=== PATIENT | male | born 1940 | race Caucasian/White ===

== ENCOUNTER 2018-09-29 17:01 | Inpatient (IN) | payer MEDICARE, BC ==
[~2018-09-29] VITALS: Ht 157.5 cm; Wt 67.8 kg
--- NOTE | ~2018-09-29 | CON ---
[address] [address] CONSULTATION Name: ABDULAZIZ ENCISO Room: [address] IN M.R.#: [id number] Admission: 09/29/18 Attend Phys: Poncho Connelly MD Discharge: Date of : 44 Report #: [id number] THIS REPORT FOR: //name// CC: Fredi Connelly DICTATED BY: Flores Ferreira [facility] DATE OF SERVICE: 10/03/2018 Please note at the time of this dictation, the patient was seen and physically examined by myself. REASON FOR CONSULTATION: Ascites, fluid refractory. HISTORY OF PRESENT ILLNESS: This 77-year-old male who presented to the rehab unit for history of sepsis, respiratory failure and pneumonia. He was newly diagnosed with cirrhosis from [facility]. He was admitted to the acute rehabilitation because of weakness and needing further rehabilitation. The patient states that he did have a paracentesis done at [facility] by Dr. Moss who is his GI doctor over there, in which he had an EGD and colonoscopy, he said EGD had some varices. Otherwise, all was good. He does not recall how much fluid was removed on the paracentesis prior to his discharge. The patient recently had a paracentesis done here due to abdominal distention. He had 2900 mL removed, and we are asked to see him for readjustment of his diuretics. ALLERGIES: SULFA, AMOXICILLIN, METFORMIN, LOSARTAN. MEDICATIONS: Lasix, doxycycline, Nexium, folic acid, ascorbic acid, multivitamin, Januvia, Ativan, felodipine, prednisone, Lipitor. PAST MEDICAL HISTORY: Compression fractures, GERD, liver cirrhosis, pneumonia, recent sepsis. PAST SURGICAL HISTORY: CABG, cholecystectomy, cardiac stent. Does have a history of atrial fibrillation. FAMILY HISTORY: Noncontributory. SOCIAL HISTORY: Former use of tobacco, never any alcohol use and denies any alcohol use. REVIEW OF SYSTEMS: Twelve-point review of systems is essentially negative except what is mentioned in the HPI. PHYSICAL EXAMINATION: [place] [address] CONSULTATION Name: ABDULAZIZ ENCISO Room: [address] IN [facility]#: [id number] Admission: 09/29/18 Attend Phys: Poncho Connelly MD Discharge: Date of : 42 Report #: [id number] VITAL SIGNS: Temperature 37.1, pulse 76, respirations 24, blood pressure 120/60. HEART: Regular rate and rhythm. CHEST: Lungs are diminished, but clear. ABDOMEN: Soft, positive bowel sounds in all 4 quadrants. Umbilical hernia noted. LABORATORY DATA: Hemoglobin 10.4, platelets 128, white count is 9.5. GFR is 94. Total bilirubin 0.4, alkaline phosphatase 189, ALT is 46, AST is 56. The patient's serum albumin ascites gradient is greater than 1.1. IMPRESSION: 1. Ascites, refractory. 2. Newly diagnosed cirrhosis. 3. Thrombocytopenia. 4. History of esophageal varices. PLAN: 1. Adjustment of diuretics Spironolactone 100 mg daily and Lasix 40 mg daily. 2. Weight daily. 3. The patient will follow up with his GI doctor, Dr. Moss, at [facility]. Thank you for allowing us to participate in this patient's care. Please do not hesitate to call with any questions in regard to this consult. ADDENDUM I have personally seen and examined the patient and reviewed labs and imaging. The patient with evidence of cirrhosis and ascites secondary to the same. The patient also has hypoalbuminemia with albumin of 1.5. The ascitic fluid albumin was 0.3. The gradient of 1.2 suggests that this is secondary to portal hypertension. The patient currently on diuretic including Lasix of 40 mg b.i.d. and Aldactone of 50. We will increase this to 100 and in couple of days to 200 of Aldactone as the patient's creatinine and GFR allows us. The patient also will need transjugular liver biopsy as he has never had a clear diagnosis to what caused his cirrhosis. This also will determine his gradient. Finally, we want the dietitian consult to help with his diet as his albumin is 1.5. This will worsen his prognosis in reference to his ascites. Note that, the patient has had upper and lower endoscopy just a week ago by his ground hand. The patient is not aware of any significant workup in reference to his liver disease prior to this admission. By: [id number] Mosquera MD /nt
[~2018-09-29 17:01] MED LIST: ACCUPRIL; ACCUPRIL PO; ADULT LOW DOSE81 MG PO; AMBEREN PO; AMBIEN 5 MG TABL5 M1 PO; AMBIEN CR 6.26.25 M1 PO; AMBIEN CR12.5 MG PO; AMBIENCR; AMBIENCR PO; AMOXICILLIN125 MG; ASPIR 8181 MG PO; ASPIRIN EC325 MG PO; ASPIRIN EC81 M1 PO; ATIVAN0.5 MG PO; ATIVAN1 MG PO; ATORVASTATIN CA20 MG PO; ATORVASTATIN CA40 MG PO; CALCIUM 500 +1 EAC5 PO; CALCIUM 600 +1 EAC2 PO; CALCIUM 600 +1 EAC5 PO; CALCIUM PO; CEFTIN 250250 MG/52 PO; CENTRUM SILVER1 EAC2 PO; CENTRUM SILVER1 EAC4 PO; CEPACOL SORE T1 EAC1 MM; DOXYCYCLINE 10100 MG PO; ECOTRIN325 MG PO; EFFIENT10 MG PO; ELIQUIS5 MG PO; ERGOCALCIF50000 UNIT PO; FENOFIBRATE134 MG PO; FISH OIL + VIT1 EACH PO; FOLIC ACID 40400 MC1 PO; FOLIC ACID 40400 MCG PO; FOLIC ACID PO; FOLIC ACID1 MG PO; GLIPIZIDE ER2.5 MG PO; GLIPIZIDE ER5 MG PO; GLUCOTROL XL5 MG PO; GLUCOTROL5 MG PO; IBUPROFEN 600600 M1 PO; JANUVIA100 MG PO; JUNIVA; LASIX 20 MG TAB20 MG PO; LASIX 40 MG TAB40 M2 PO; LISINOPRIL2.5 MG PO; LOSARTAN POTAS100 MG PO; MEROPENEM1 GM IV; METFORMIN; METHOTREXATE 22.5 MG PO; MULTI-VITAMIN1 EAC5 PO; MULTIVITAMINS; NEXIUM 40 MG CA40 M1 PO; NEXIUM40 MG PO; NITROGLYCERIN0.4 MG SUBLING; NORCO 5-325 TA1 EACH PO; PEPCID40 MG PO; PIOGLITAZONE15 MG; POTASSIUM20 PO; PREDNISONE; PREDNISONE 1 MG1 M1 PO; PREDNISONE 5 MG5 M1 PO; PREDNISONE PO; PREVACID 24HR15 MG PO; QUINU10 PD PO; QUINU5 PD PO; SENNA8.6 MG PO; TOPROL XL25 MG PO; TREXALL10 MG PO; TREXALL5 MG PO; TRICOR; TRICOR PO; TRICOR145 MG PO; TYLENOL EXTRA500 MG PO; UNICOMPLEX M TA1 TA1 PO; VITAMIN C + RO500 MG PO; VITAMIN D1000 UNI1 PO; VITAMINC500 PO; VYTORIN; VYTORIN 10-401 EACH PO; VYTORIN PO; XARELTO20 MG PO; ZOFRAN ODT4 MG PO; ZOLPIDEM TART12.5 M1 PO
[2018-09-29 19:31] VITALS: BP 92/58
--- NOTE | 2018-09-30 01:35 | NUR ---
ASSUMED CARE AT 1930. PATIENT ADMITTED TO ROOM 324 AROUND 190. UP WITH SBA, GAIT BELT, WALKER. ON O2 1L/NC. PICC LINE TO RUE FLUSHES ADEQUATELY, DRESSING C/D/I. IVABX INFUSED THROUGH LINE WITHOUT DIFF. HAS PARACENTSIS SIDE TO RT LOWER ABD, DRESSING WAS SATURATED WITH CLEAR YELLOW DRAINAGE, PARACENTESIS WAS DONE 09/28. DRESSING CHANGED, FLUFFS AND ABD PADS USED. ALSO HAS BANDAID TO BACK WHERE HE HAD SKIN CANCER REMOVED. PATIENT DECLINED FOR THIS NURSE TO REMOVE BANDAID, STATES WILL BRING IN SUPPLIES FOR DRESSING CHANGE. HAD LARGE SOFT BM WITH SOME URGENCY PER BSC. C/O THAT THE EGD THAT WAS DONE TODAY MADE HIM GASSY AND AFTER BM PER BSC STATED THAT HE FELT MUCH BETTER. MOISTURE BARRIER APPLIED AFTER BM. TAKES PILLS WHOLE WITH WATER WITHOUT DIFF. TURNS SELF IN BED. PREFERS LYING ON BACK WITH HOB ELEVATED AND LEGS UP ON TWO PILLOWS. REFUSED CHANGE DESPITE EDUCATION. BLE ANKLE AND PEDAL EDEMA PRESENT. STATES THAT HIS MAIN GOAL IS GETTING STRONGER AND GETTING THE FLUID OUT OF HIS LEGS. INSTRUCTED THAT LASIX IS ORDERED FOR THE MORNING, AND THAT ELEVATING THEM NOW AND OFTEN POSSIBLE THROUGHOUT THE DAY WILL ALSO ASSIST IN DECREASING BLE EDEMA. HOURLY ROUNDS CONTINUE. BED ALARM ON. CALL LITE IN REACH.
[2018-09-30 05:33] LABS: HEMATOCRIT 32.4 % (42.0-52.0); HEMOGLOBIN 10.5 gm/dL (14.0-18.0); MCH 22.4 pg (26.0-34.0); MCHC 32.3 g/dL (28.0-37.0); MCV 69.3 fL (80.0-100.0); MPV 7.9 fl. (7.2-11.1); RBC 4.67 mil/uL (4.50-6.00); RDW-CV 19.6 % (10.5-14.5); WBC 7.6 thou/uL (4.0-11.0)
[2018-09-30 05:51] LABS: CALCIUM 7.9 mg/dL (8.5-10.1); CREATININE 0.8 mg/dL (0.6-1.3)
--- NOTE | 2018-09-30 06:44 | NUR ---
OBSERVED SOFTLY SNORING AT TIMES, BUT PATIENT C/O THAT HE REALLY DID NOT SLEEP BECAUSE OF THE SCD'S. THESE REMOVED AT 0430 PER REQUEST. PATIENT HAS HAD LEGS ELEVATED ON TWO PILLOWS AND THE FOB ELEVATED. NOW FEET MUCH LESS EDEMATOUS THAT BEFORE HE WENT TO BED. VOIDS PER URINAL. ANXIOUSLY AWAITING LASIX TO BE GIVEN TO HELP WITH REMOVAL OF FLUID FROM LEGS. REFUSES TO TURN SIDE TO SIDE BUT STATES THAT HE DID SHIFT POSITIONS THROUGH THE NIGHT. PICC LINE FLUSHED, IVABX INFUSED. REQUESTED COFFEE AT 0615 BECAUSE HE WAS "UP FOR THE DAY" ENCOURAGED TO CONTINUE TO REST BEFORE THERAPIES TO CONSERVE ENERGY. HOURLY ROUNDS CONTINUE. BED ALARM ON. CALL LITE IN REACH.
[2018-09-30 07:30] VITALS: BP 116/61
[2018-09-30 10:39] LABS: CALCIUM 8.4 mg/dL (8.5-10.1); CREATININE 0.9 mg/dL (0.6-1.3); MAGNESIUM 1.8 mg/dL (1.8-2.4); POTASSIUM 3.1 mmol/L (3.5-5.1)
--- NOTE | 2018-09-30 18:07 | NUR ---
ASSUMMED CARE OF PT AT 0730, PT ALERT AND ORIENTED, PT TRANSFERS WITH SBA, GB WALKER, TAKING FOOD AND FLUIDS, PT AMBULATED TO DININGROOM FOR DINNER, PT K+ DECREASED AND REPLACED THIS SHIFT, TRIPLE LUMEN PICC PATENT, PT COMPLAINS OF DISCOMFORT IN ABDOMEN, STATES HE FEELS HE NEEDS A PARACENTHESIS DONE AGAIN, PT INFORMED THAT WILL ASK PHYSICIAN ABOUT A GI CONSULT IN AM, PT AGREEABLE WITH PLAN, PT AMBULATED AROUND UNIT, PT ABDOMEN IS DISTENDED AND FIRM, EDEMA IN BILATERAL ANKLE AND FEET, KEPR ELEVATED MOWT OF SHIFT, PARTICIPATED IN ALL THERAPIES, HOURLY ROUNDING COMPLETED, ASSESSMENT COMPLETE, WILL CONTINUE TO MONITOR.
[2018-09-30 20:00] VITALS: BP 155/73
--- NOTE | 2018-10-01 05:35 | NUR ---
ASSUMED CARE AT 1930. PATIENT RESTED IN BED ALL SHIFT. REFUSED TO TURN DESPITE EDUCATION. PATIENT DOES MOVE HIMSELF IN BED AND SHIFT POSITIONS, BUT PREFERS TO BE LYING IN SEMI FOWLERS BECAUSE OF HIS ASCITES AND LIKES HAVING HIS LEGS ELEVATED BECAUSE OF THE EDEMA IN THEM. BLE ANKLE/PEDAL EDEMA MUCH IMPROVED SINCE YESTERDAY. TAKES PILLS WHOLE WITH WATER. HAS MORE PROBLEM WITH LARGE POTASSIUM PILLS BUT WAS ABLE TO GET THEM DOWN WITH WATER. DOES NOT WANT TO DRINK A LOT OF WATER BECAUSE IT MAKES HIM FEEL BLOATED. 2300 LAB POTASSIUM WAS 3.4. GIVEN REPLACEMENT POTASSIUM PER PROTOCOL. DENIES PAIN. PICC LINE DRESSING TO RUE C/D/I. DSSG FROM PREVIOUS PARACENTESIS RLQ C/D/I. VOIDS PER URINAL. HOURLY ROUNDS CONTINUE. BED ALARM ON. CALL LITE IN REACH.
[2018-10-01 08:18] VITALS: BP 131/69
--- NOTE | 2018-10-01 15:55 | NUR ---
ASSUMED CARE AT 0730. ALERT ORIENTED PLEASANT COOPERATIVE. HX OF SEPTIC SHOCK PLEURAL EFFUSION AND ASCITES. ABDOMEN DISTENDED FROM ASCITES. TRANSFERS WITH SBA G BELT WALKER. WEARING O2 AT 1L/M PER N/C. HOB ELEVATED AND FEET ELEVATED FOR EDEMA PRESENT. HAS PICC LINE RT. UPPER ARM FOR IV ANTIBIOTICS. DENIES CONCERNS OR PAIN. VOIDING LARGE AMTS YELLOW URINE HE IS ON LASIX AND SPIRONOLACTONE. MOVES SELF IN BED. DR. GARCIA ORDERED PARACENTISIS PER US TOMORROW. USES CALL LIGHT APPROPRIATELY FOR ASSIST. DRESSING D/I RT. GROIN AREA FROM PARACENTIS PREVIOUSLY DONE. FEEDS SELF AND TAKES MEDS WITHOUT DIFFICULTY.
[2018-10-01 20:00] VITALS: BP 115/41
--- NOTE | 2018-10-02 05:33 | NUR ---
ASSUMED CARES AT 1920. ALERT AND ORIENTED. PLEASANT. ON O2 1L NC. DENIED ANY PAIN. INITIALLY C/O NAUSEA BUT HAD RELIEF SOON SAT UP AND STARTED BELCHING. DOES HAVE DISTENDED ABD. POSSIBLE PARACENTESIS TODAY. PT TENTATIVELY NPO AFTER MIDNIGHT FOR NOW UNTIL THIS IS CONFIRMED. DRESSING TO OLD SITE ON RLQ ABD WAS CHANGED. DRSG WAS WET WITH SEROUS DRAINAGE. PT USED URINAL AND NURSING EMPTIED. TRIPLE LUMEN PICC TO ANEUDY FLUSHING WTIH GOOD BLOOD RETURN. PT C/O SORE TONGUE. TONGUE NOTED TO BE DARK RED WITH SLIGHT WHITE COAT. PT DENIED ANY SORE THROAT. SAYS THAT THIS HAPPENS WHEN HE GETS THRUSH. SPOKE WITH DR BARNARD, ORDER FOR MYCELEX TABS. PER PHARMACY, NYSTATIN SUSP IS ON BACK ORDER. PT SLEPT MOST OF THE NIGHT. CALL LIGHT IN REACH AND BED ALARM ON.
[2018-10-02 07:40] VITALS: BP 107/60
[2018-10-02 11:56] LABS: BF RBC <1000 /mm3; TOTAL CELL COUNT 221 /mm3
[2018-10-02 12:00] LABS: TOTAL VOLUME 2950 ml
[2018-10-02 12:01] LABS: CLARITY CLEAR
[2018-10-02 12:03] LABS: BF LYMPHOCYTES 15 %; BF MONOCYTES 32 %; BF POLYS 53 %; BF TISSUE 1 /100 WBC
[2018-10-02 12:04] LABS: SOURCE ABDOMINAL
--- NOTE | 2018-10-02 15:39 | NUR ---
I have reviewed the documentation by ESTER CALDWELL from TODAY to 10/02/18 and I concur with it. KELLY PORTILLO
--- NOTE | 2018-10-02 15:53 | NUR ---
SW met with pt to complete initial assessment, introduce self, and SW role in inpt rehab unit. Pt alert, although tired, oriented, answered questions appropriately. Pt lives at home with his ; they are both retired. Pt is diabetic and has sore feet and legs. Pt was previously independent with ADLs and mobility. Pt has RW, wc but pt does not have any DME. Pt has 2 children who live closeby and pt says that they could assist pt if needed at dc. Pt does not have any history with HH or SNF; pt resistant to the idea of HH services at dc. SW to continue to follow to assist with safe dc planning.
--- NOTE | 2018-10-02 16:51 | NUR ---
ASSUMED CARE AT 0730. ALERT ORIENTED PLEASANT COOPERATIVE. HX OF SEPTIC SHOCK. ASCITES. PT. IS NPO FOR US PARACENTISIS THIS A.M. SITTING IN RECLINER AT BEDSIDE. DENIES PAIN OR CONCERNS. HAS PICC ANEUDY 3 LUMEN FOR IV ANTIBIOTICS. VOIDS CLEAR YELLOW URINE PER URINAL. ABDOMEN DISTENDED DRESSING RT. GROIN. D/I RETURNED AT 1030 FROM US AND HAD SMALL DRESSINGS RT. ABDOMINAL AREA X 3-4. PARTICIPATED IN THERAPIES AFTERWARDS EDEMA PRESENT BLES PITTING. 2950 CCS FLUID REMOVED WITH PAEACENTISI. APPETITE FAIR AT LUNCH MEAL.
--- NOTE | 2018-10-02 19:02 | NUR ---
PT. HAS BEEN IN BED WITH BLES ELEVATED FOR EDEMA. GI CONSULT CALLED AND MED STUDENT SPOKE WITH PT. RE ASCITES. PT. DENIES PAIN OR CONCERNS. USES CALL LIGHT APPROPRIATELY FOR ASSIST. SAT ON SIDE OF BED EATING SUPPER STATES FEELS LIKE HE CAN BREATHE BETTER SINCE PARACENTISIS.
[2018-10-02 20:00] VITALS: BP 111/58
[2018-10-03 05:30] LABS: HEMATOCRIT 32.4 % (42.0-52.0); HEMOGLOBIN 10.4 gm/dL (14.0-18.0); MCH 22.6 pg (26.0-34.0); MCHC 32.1 g/dL (28.0-37.0); MCV 70.2 fL (80.0-100.0); MPV 7.7 fl. (7.2-11.1); NUCLEATED RBCS 0 /100WBC; RBC 4.61 mil/uL (4.50-6.00); RDW-CV 19.5 % (10.5-14.5); WBC 9.5 thou/uL (4.0-11.0)
[2018-10-03 05:32] LABS: PLATELET COUNT* 128 thou/uL (150-400)
--- NOTE | 2018-10-03 05:53 | NUR ---
ASSUMED CARES AT 1920. ALERT AND ORIENTED. PLEASANT. ON O2 1L NC. TRIPLE LUMEN PICC TO ANEUDY DRESSING CHANGED. BLE EDEMA 2+ IMPROVED SOME OVERNIGHT WITH LEGS UP ONTO PILLOW. PT STATED THAT FELT BETTER AFTER PARACENTESIS. NOT DISTENDED. DRSGS TO RLQ ABD WITH SOME DRAINAGE NOTED. DENIED ANY PAIN. USED URINAL AND RN EMPTIED. SLEPT MOST OF THE NIGHT CALL LIGHT IN REACH AND BED ALARM ON.
[2018-10-03 05:59] LABS: ALBUMIN 1.5 g/dL (3.4-5.0); CALCIUM 7.3 mg/dL (8.5-10.1); CREATININE 0.8 mg/dL (0.6-1.3); POTASSIUM 3.6 mmol/L (3.5-5.1); TOTAL BILIRUBIN 0.4 mg/dL (<0.1-1.0); TOTAL PROTEIN 4.8 g/dL (6.4-8.2)
[2018-10-03 06:25] LABS: ABSOLUTE EOSINOPHILS 0.1 thou/uL (0.0-0.7); ABSOLUTE LYMPHOCYTES 0.2 thou/uL (0.8-5.3); ABSOLUTE MONOCYTES 0.4 thou/uL (0.0-1.2); ABSOLUTE NEUTROPHILS 8.8 thou/uL (1.6-8.1)
[2018-10-03 06:26] LABS: HYPOCHROMASIA 2+
[2018-10-03 06:27] LABS: ANISOCYTOSIS 1+; MICROCYTES 2+; PLATELET ESTIMATE DECREASED; TEARDROPS 1+
[2018-10-03 06:28] LABS: TARGET CELLS Occasional
[2018-10-03 07:20] VITALS: BP 120/63
[2018-10-03 09:09] LABS: BODY FLUID AMYLASE 22 U/L (()); BODY FLUID CREATININE 0.5 mg/dL (()); BODY FLUID LDH 42 IU/L (()); BODY FLUID PROTEIN 0.5 g/dL (())
--- NOTE | 2018-10-03 15:29 | NUR ---
I have reviewed the documentation by ESTER CALDWELL from TODAY to 10/03/18 and I concur with it. KELLY PORITLLO
--- NOTE | 2018-10-03 16:11 | NUR ---
ASSUMMED CARE OF PT AT 0730, PT ALERT AND ORIENTED, PT TRANSFERS WITH SBA, GB WALKER, PT DENIES PAIN, TAKING FOOD AND FLUIDS WELL, VOIDS PER TOILET/URINAL, EDEMA NOTED IN ANKLES BILATERALLY, LEGS ELEVATED, 3 GAUZE DRESSING DRY AND INTACT TO RIGHT LOWER ABDOMEN, TRIPLE LUMEN LINE INTACT IN ANEUDY, PT PARTCIPATED IN ALL THERAPIES, AMBULATED TO DININGROOM FOR LUNCH, HOURLY ROUNDING COMPLETED, ASSESSMENT COMPLETE, WILL CONTINUE TO MONITOR.
--- NOTE | 2018-10-03 17:35 | NUR ---
I have reviewed the documentation by WILNER BULLOCK from 10/03/18 to 10/03/18 and I concur with it. NONI, MAGDALENA
[2018-10-03 20:00] VITALS: BP 107/59
--- NOTE | 2018-10-04 05:05 | NUR ---
ASSUMED PT CARE AT 1920. PT ALERT AND ORIENTED X4, POLITE AND COOPERATIVE WITH CARES. PT UP TO BATHROOM AT BEGINNING OF SHIFT WITH SBA, GAITBELT AND WALKER. LARGE FORMED STOOL. PT ON 1L 02 PER NC. USED URINAL OVERNIGHT, RN EMPTIED. PT NOW ON I & O. EDEMA TO BILAT ANKLES, UP ON PILLOWS OVERNIGHT, IMPROVED THIS AM. GAUZE DRESSINGS X3 TO RIGHT LOWER ABDOMEN C/D/I. PT ABDOMEN DISTENDED. TRIPLE LUMEN PICC TO ANEUDY INTACT, ALL PORTS FLUSH EASILY AND LABS DRAWN FROM [place]. DENIES PAIN. NPO AT MIDNIGHT, PT TO HAVE LIVER BIOPSY TODAY. BED ALARM ON FOR SAFETY. USES CALL LIGHT APPROPRIATELY. CALL LIGHT AND FREQUENTLY USED ITEMS WITHIN REACH, HOURLY ROUNDING IN PROGRESS, WILL CONTINUE TO MONITOR.
[2018-10-04 08:09] VITALS: BP 100/59
[2018-10-04 09:17] LABS: SOURCE ABDOMINAL
[2018-10-04 09:18] LABS: SOURCE ABDOMINAL
--- NOTE | 2018-10-04 09:42 | NUR ---
pt is alert and orientated this am. triple picc line to rt.upper arm intact and flushes well.pt now to ir for liver bx.
--- NOTE | 2018-10-04 11:21 | NUR ---
PT RETURNED FROM IR PROCEDURE. DRESSING OVER INSERTION SITE AT RT.JUGULAR WITH SMALL AMT SEROUS BLOOD NOTED. WILL MONITOR. PT IS ALERT AND ORIENTATED. CALL LIGHT AND PHONE IN REACH.O2 AT 2L PER NC. PT SITS IN BED WITH HEAD ELEVATED.
[2018-10-04 11:23] VITALS: BP 108/58
--- NOTE | 2018-10-04 14:01 | NUR ---
SW met with pt to review team conference summary and plan for pt to remain on rehab unit one more week with team to reassess pt length of stay during team conference next Tuesday and then pt to dc next Tuesday after TC 10/11. Pt preference for OP therapy services at [facility] in [place]. SW to continue to follow to assist with safe dc planning.
--- NOTE | 2018-10-04 15:03 | NUR ---
I have reviewed the documentation by ESTER CALDWELL from TODAY to 10/04/18 and I concur with it. KELLY PORTILLO
--- NOTE | 2018-10-04 16:50 | NUR ---
I have reviewed the documentation by WILNER BULLOCK from 10/04/18 to 10/04/18 and I concur with it. NONI, MAGDALENA
--- NOTE | 2018-10-04 17:13 | NUR ---
PT HAS PARTICIPATED WITH THERAPIES THIS AFTERNOON AND TOLERATED WELL. PT DENIES PAIN OR OTHER DISCOMFORT. PT TOLERATED LIVER BX DONE THIS AM FROM RT. [facility] SITE. DRESSING CHANGED WITH NO FURTHER BLEEDING NOTED. DRESSINGS REMOVED FROM ABDOMEN WITH SITES INTACT.PT HAS ROUND DISTENDED ABDOMEN AND DENIES SOB.PT CONTINUES TO USE O2 AT 1L PER NC.PT HAS BEEN CONTINENT OF BLADDER. PT REMAINS ALERT AND ORIENTATED.
[2018-10-04 20:00] VITALS: BP 106/57
--- NOTE | 2018-10-05 05:56 | NUR ---
ASSUMED PT CARE AT 1930. PT ALERT AND ORIENTED X4, POLITE AND COOPERATIVE WITH CARES. PT ON 2L 02 PER MD. USES URINAL OVERNIGHT, RN EMPTIED. EDEMA TO BILATERAL ANKLES, UP ON PILLOWS OVERNIGHT. NO BLEEDING FROM RIGHT JUGULAR SITE. PICC TO ANEUDY PATENT. DENIES PAIN. AMBIEN PER PT REQUEST. PT USES CALL LIGHT APPROPRIATELY. BED ALARM ON FOR SAFETY. CALL LIGHT AND FREQUENTLY USED ITEMS WITHIN REACH. HOURLY ROUNDING IN PROGRESS, WILL CONTINUE TO MONITOR.
[2018-10-05 10:02] VITALS: BP 115/61
--- NOTE | 2018-10-05 10:06 | PATH ---
[address] [address] PATHOLOGY RPT PROCEDURE Name: ABDULAZIZ ENCISO Room: [address] IN [facility]#: [id number] Admission: 09/29/18 Date of : 44 Discharge: Report #: [id number] Path Case #: [id number] Note [facility] Accession Number: [id number] TESTS RESULT FLAG UNITS REF RANGE LAB Clinician Provided Cytology Information No. of containers..01 Other (Miscellaneous) Source: 01 ASCITES DIAGNOSIS: 02 ASCITES INCONCLUSIVE. FEW ATYPICAL CELLS, SINGLY AND IN SMALL GROUPS, IN BACKGROUND OF REACTIVE MESOTHELIAL CELLS AND ACUTE AND CHRONIC INFLAMMATORY CELLS. THIS INTERPRETATION INCLUDES EVALUATION OF A CELL BLOCK. Signed out by: 02 Gurjit Lewis MD, Pathologist NPI- [id number] Performed by: 01 Maranda Gar, Convict Guard ([facility]) Gross description: 01 60ML, YELLOW, CLOUDY /LCS FLAG LEGEND: L-Low Normal,H-High Normal,LL-Alert Low,HH-Alert High <-Panic Low,>-Panic High,A-Abnormal,AA-Critical Abnormal Performed at: [address] [place] [address] Francois Mayer MD, [address] [place] [id number] Gurjit Lewis MD, Specimen Comment: A courtesy copy of this report has been sent to Specimen Comment: [phone]. Specimen Comment: Report sent to DR EMANUEL Specimen Comment: A duplicate report has been generated due to demographic updates. Performed at: [address], [place], [place] [id number] MD Francois Mayer MD Phone: [phone]
--- NOTE | 2018-10-05 10:49 | NUR ---
PATIENT UP IN RECLINER. ALERT AND ORIENTED. DENIES COMPLAINTS OF PAIN OR DISCOMFORT NO SIGN OF DISTRESS. CONT. WITH CURRENT PLAN OF CARE AT THIS TIME.
--- NOTE | 2018-10-05 12:51 | NUR ---
I have reviewed the documentation by Amanda Cronin from 10/05/18 to 10/05/18 and I concur with it. IRINEO PULIDO
--- NOTE | 2018-10-05 17:50 | NUR ---
PATIENT SITING UP IN RECLINER. ALERT AND ORIENTED X 4, STATES BEEN HAVING COUGH. LS CL BUT DIMINISHED. CXR ORDERED
[2018-10-05 20:00] VITALS: BP 123/71
--- NOTE | 2018-10-05 22:07 | NUR ---
ASSUMED CARE AT 1920. ALERT AND ORIENTED. PLEASANT. ON O2 2L NC. HX OF ASCITES. ABD DISTENDED. OLD PARACENTESIS SITE TO RLQ ABD IS STILL DRAINING. DRSG APPLIED. DRSG TO RIGHT NECK IS INTACT. PT C/O PRODUCTIVE COUGH THAT DOES BOTHER HIM QUITE A BIT. SPOKE WITH DR BARNARD AND REVIEWED CXR RESULTS. PER DR BARNARD'S REQUEST, THIS RN CONSULTED WITH PHARMACY IF OKAY FOR PT TO TAKE MUCINEX IF HE HAS ASCITES. PER PHARMACY, SHOULD BE FINE TO GIVE MUCINEX. WILL CONTINUE TO MONITOR.
[2018-10-06 05:18] LABS: ABSOLUTE BASOPHILS 0.1 thou/uL (0.0-0.2); ABSOLUTE EOSINOPHILS 0.2 thou/uL (0.0-0.7); ABSOLUTE LYMPHOCYTES 0.4 thou/uL (0.8-5.3); ABSOLUTE MONOCYTES 0.8 thou/uL (0.0-1.2); ABSOLUTE NEUTROPHILS 8.7 thou/uL (1.6-8.1); BASOPHILS 0.7 %; EOSINOPHILS 1.5 %; HEMATOCRIT 30.1 % (42.0-52.0); HEMOGLOBIN 9.9 gm/dL (14.0-18.0); LYMPHOCYTES 3.8 %; MCHC 32.8 g/dL (28.0-37.0); MCV 70.1 fL (80.0-100.0); MONOCYTES 7.4 %; MPV 8.4 fl. (7.2-11.1); NUCLEATED RBCS 0 /100WBC; PLATELET COUNT* 117 thou/uL (150-400); POLYS 86.6 %; RDW-CV 20.5 % (10.5-14.5); WBC 10.1 thou/uL (4.0-11.0)
[2018-10-06 05:27] LABS: INR 1.2; PROTIME 12.2 Seconds (9.20-11.50)
--- NOTE | 2018-10-06 05:38 | NUR ---
PT USED URINAL DURING THE NIGHT AND RN EMPTIED. BLE EDEMA 2-3+. LEGS ELEVATED UP ONTO PILLOWS. PT WOKE UP C/O RIGHT ANKLE PAIN. SAYS HAS HAD THIS FOR PAST 2 MONTHS OFF AND ON. TYLENOL GIVEN FOR PAIN AND RIGHT ANKLE WAS RIKKI WRAPPED. PT STATED THAT THIS HELPED. TL PICC TO ANEUDY FLUSHING WELL WITH GOOD BLOOD RETURN. SLEPT OFF AND ON. CALL LIGHT IN REACH AND BED ALARM ON.
[2018-10-06 05:46] LABS: ALBUMIN 1.6 g/dL (3.4-5.0); CALCIUM 7.6 mg/dL (8.5-10.1); CREATININE 0.7 mg/dL (0.6-1.3); POTASSIUM 3.9 mmol/L (3.5-5.1); TOTAL BILIRUBIN 0.4 mg/dL (<0.1-1.0)
[2018-10-06 08:00] VITALS: BP 107/58
--- NOTE | 2018-10-06 12:25 | NUR ---
AM ASSESSMENT AND VITAL SIGNS COMPLETED DOCUMENTED. PT HAS BEEN C/O COUGH AND CONGESTION THIS AM. ORDERS REC'D FOR NEBULIZER TREATMENTS, HUMIDIFIED O2 AND THROAT LOZENGES. A SPUTUM SPECIMEN HAS BEEN SENT TO THE LAB, RESULTS PENDING. PT HAS BEEN COOPERATIVE WITH THERAPIES BUT REFUSED TO GO TO THE DINING ROOM FOR LUNCH. FALL PRECAUTIONS AND HOURLY ROUNDING CONTINUE.
--- NOTE | 2018-10-06 15:11 | NUR ---
I have reviewed the documentation by ESTER CALDWELL from 10/05/18 to 10/06/18 and I concur with it. KELLY PORTILLO
--- NOTE | 2018-10-06 18:04 | NUR ---
PT HAS RESTED AFTER COMPLETING THERAPY AND STATES HE FEELS A LITTLE BETTER. VSS, AFEBRILE AND HAS A GOOD APPETITE. NO ACUTE DISTRESS, WILL CONTINUE TO MONITOR.
[2018-10-06 20:00] VITALS: BP 113/59
--- NOTE | 2018-10-06 23:25 | NUR ---
ASSUMED CARE AT 1930. PATIENT RESTING IN BED. O2 2L/NC. HX OF ASCITES. ABD FIRM. DSSG DRY FROM PARACENTESIS SITES. SON BROUGHT IN HIS HOME MEDS OF SLEEPING PILLS, THESE SENT TO PHARMACY FOR IDENTIFICATION AND ORDER RECEIVED TO BE ABLE TO USE HOME MED. HE STATES HE IS GLAD TO BE USING HIS REGULAR SLEEPING PILLS BECAUSE OURS DON'T WORK THE SAME WAY. HAS LOOSE SOUNDING COUGH, BUT HE STATES HE IS NOT GETTING ANY PHLEGM UP. REFUSES TO TURN DESPITE EDUCATION, LIES WITH HOB ELEVATED AND LEGS UP. PICC LINE TO RUE FLUSHES WELL, DRESSING C/D/I. DENIES PAIN. OBSERVED SLEEPING AT 2300 ROUNDS. HOURLY ROUNDS CONTINUE. BED ALARM ON. CALL LITE IN REACH.
--- NOTE | 2018-10-07 05:49 | NUR ---
APPEARED TO BE SLEEPING UNTIL AROUND 0400. REQUESTING COFFEE. GIVEN CLORTRIAMAZOLE STEVE EARLY BEFORE DRINKING COFFEE. LABS DRAWN PER PICC LINE WITHOUT DIFF. VOIDS PER URINAL, NURSE EMPTIES. NO C/O PAIN. REPOSITIONS SELF BUT PREFERS TO LIE WITH HOB ELEVATED AND FEET ELEVATED. HOURLY ROUNDS CONTINUE. BED ALARM ON. CALL LITE IN REACH.
[2018-10-07 07:00] VITALS: BP 108/62
[2018-10-07 20:00] VITALS: BP 119/63
--- NOTE | 2018-10-08 05:18 | NUR ---
ASSUMED PT CARE AT 1930. PT ALERT AND ORIENTED X4, POLITE AND COOPERATIVE WITH CARES. PT RESTING IN BED, ON 2.5 L 02 PER NC. ABDOMEN FIRM AND DISTENDED. PT HAS LOOSE COUGH BUT IS FRUSTRATED THAT HE IS NOT GETTING ANY PHLEGM UP. SCHEDULED RT TREATMENTS. PT IN BED WITH HOB ELEVATED AND LEGS ELEVATED, ALTERNATIVELY, PT SITTING UP ON SIDE OF BED AT TIMES STATING IT HELPS HIS BREATHING. VS WNL AT SHIFT CHANGE. PT SPIKED FEVER OF 100.1 AT 2300. TYLENOL GIVEN. TEMP RECHECKED 98.5. PICC LINE TO UPPER RIGHT ARM FLUSHES WELL, DRESSING C/D/I. VOIDS PER URINAL, NURSE EMPTIED. USES CALL LIGHT APPROPRIATELY. CALL LIGHT AND FREQUENTLY USED ITEMS WITHIN REACH. HOURLY ROUNDING IN PROGRESS, WILL CONTINUE TO MONITOR.
[2018-10-08 07:25] VITALS: BP 191/65
--- NOTE | 2018-10-08 12:29 | NUR ---
ALERT AND ORIENTED X 4. REPORTS DID NOT SLEEP WELL DO TO COUGH. SEEN DR ON THE UNIT, HE CAME TO SEE PATIENT. ORDERED ABX, PRN RT TXMTS.
[2018-10-08 13:37] LABS: HEMATOCRIT 32.3 % (42.0-52.0); HEMOGLOBIN 10.3 gm/dL (14.0-18.0); MCH 22.5 pg (26.0-34.0); MCV 70.2 fL (80.0-100.0); MPV 8.4 fl. (7.2-11.1); NUCLEATED RBCS 0 /100WBC; PLATELET COUNT* 151 thou/uL (150-400); RDW-CV 20.9 % (10.5-14.5); WBC 15.6 thou/uL (4.0-11.0)
[2018-10-08 13:48] LABS: CALCIUM 7.9 mg/dL (8.5-10.1); CREATININE 0.8 mg/dL (0.6-1.3); POTASSIUM 4.7 mmol/L (3.5-5.1)
[2018-10-08 14:12] LABS: ABSOLUTE BASOPHILS 0.2 thou/uL (0.0-0.2); ABSOLUTE LYMPHOCYTES 0.2 thou/uL (0.8-5.3); ABSOLUTE MONOCYTES 0.3 thou/uL (0.0-1.2); PLATELET ESTIMATE ADEQUATE
[2018-10-08 14:13] LABS: ANISOCYTOSIS 2+; MICROCYTES 2+
[2018-10-08 14:44] LABS: ESR (SEDRATE) 17 mm/hr (0-20)
[2018-10-08 22:41] VITALS: BP 114/65
[2018-10-08 23:09] LABS: COMPLEMENT-C4 26 mg/dL (14-44)
--- NOTE | 2018-10-09 01:33 | NUR ---
ASSUMED CARE @ 1924-10/08-SUN.SITS IN RECLINER W/ LE'S UP ON PHONE @ THIS TIME.O2 0N @ 2L/NC.CHAIR ALARM ALREADY ON @ 1924.AT 1934-PER STOCK MOVER 02 SAT-84 %. O2 INCREASED TO 3L/NC @ 1934 UNTIL O2 SAQT @ 94 %.RECEIVING PUL TX @ 2019. TWO URINALS W/IN REACH.WANTS ALL LIGHTS OFF @ NIGHT.TRIPLE PORTS PICC LINE HAS GOOD BLOOD RETURN @ 2024 & FLUSHED GOOD.FEELS WARM @ 2199.TEMP. RE-CHECKED -98.1 ORAL.BP @ 0705-191/65.BP @ 1999-/65.PRN AMBIEN 5 MG ORAL GIVEN @ 2214-PER PT'S REQUEST.WANTS TO SLEEP IN RECLINER ALL NIGHT.EDEMA-+2 PITTING LEGS,FEET & ANKLES.ON HOURLY ROUNDS.STOCK MOVER DOING ODD HOUR ROUNDS.
--- NOTE | 2018-10-09 05:15 | NUR ---
SLEEPING SINCE -10/09-TUESDAY.AWAKE @ INTERVALS DURING NIGHT.TOOK ALL GLUCERNA SHAKE HS SNACK.BRP X1 FOR LARGE BM X1.USED URINAL X5.NURSE EMPTIES URINALS @ NIGHT.PRN ATIVAN 0.5 MG ORAL GIVEN @ 0444 TO RELAX PATIENT.DRINKING COFFEE-HALF REGULAR & HALF DECAFF @ 0500.WEIGHT TODAY-10/09- -149.6 LBS-STANDING SCALE.WEIGHT 10/08-BED SCALE-139.5 LBS.
[2018-10-09 05:18] LABS: ABSOLUTE BASOPHILS 0.1 thou/uL (0.0-0.2); ABSOLUTE EOSINOPHILS 0.1 thou/uL (0.0-0.7); ABSOLUTE LYMPHOCYTES 0.6 thou/uL (0.8-5.3); ABSOLUTE MONOCYTES 0.6 thou/uL (0.0-1.2); ABSOLUTE NEUTROPHILS 8.9 thou/uL (1.6-8.1); EOSINOPHILS 1.1 %; HEMATOCRIT 27.8 % (42.0-52.0); HEMOGLOBIN 9.3 gm/dL (14.0-18.0); LYMPHOCYTES 6.2 %; MCHC 33.5 g/dL (28.0-37.0); MCV 68.8 fL (80.0-100.0); MPV 8.4 fl. (7.2-11.1); NUCLEATED RBCS 0 /100WBC; PLATELET COUNT* 140 thou/uL (150-400); POLYS 85.7 %; RBC 4.04 mil/uL (4.50-6.00); RDW-CV 20.6 % (10.5-14.5); WBC 10.4 thou/uL (4.0-11.0)
[2018-10-09 05:27] LABS: INR 1.2; PROTIME 11.9 Seconds (9.20-11.50)
[2018-10-09 05:34] LABS: ALBUMIN 1.7 g/dL (3.4-5.0); CREATININE 0.7 mg/dL (0.6-1.3); POTASSIUM 4.4 mmol/L (3.5-5.1); TOTAL BILIRUBIN 0.4 mg/dL (<0.1-1.0); TOTAL PROTEIN 5.6 g/dL (6.4-8.2)
[2018-10-09 08:00] VITALS: BP 103/53
[2018-10-09 12:00] VITALS: BP 88/60
--- NOTE | 2018-10-09 12:44 | NUR ---
PT RETURNED FROM THERAPY AND NOTED TO HAVE PULSE IN 140-150'S, BP 88/60, RESP 20, O2 SAT 90% ON 2 LITERS INCREASED TO 3 LITERS AND SAT OF 91% OBTAINED. PULSE CONTINUES TO BE ELEVATED AT 152, APICAL, RHYTHEM REGULAR, DR GARCIA NOTIFIED, ORDERS OBTAINED, PT DENIES CHEST PAIN, WEAKLNESS, EKG OBTAINED BEFORE AND AFTER DIGOXIN GIVEN, HEART RATE 152 PRIOR TO ADMININSTRATION AND 103 AFTER ADMININSTRATION, CARDIOLOGY HERE TO SEE PT, AWAITING FURTHER ORDERS.
[2018-10-09 13:30] VITALS: BP 106/66
[2018-10-09] MEDS ORDERED: LEVAQUIN 500 M500 M2 PO (14:43)
[2018-10-09] MEDS ORDERED: MUCINEX600 MG PO (14:46)
[2018-10-09] MEDS ORDERED: LITE COAT ASPI325 MG PO (14:46)
[2018-10-09] MEDS ORDERED: DILTIAZEM HCL30 MG PO (14:47)
[2018-10-09] MEDS ORDERED: DOXYCYCLINE 10100 MG PO (14:48)
[2018-10-09] MEDS ORDERED: NOVOLOG100 UNIT/1 SUBQ (14:50)
[2018-10-09] MEDS ORDERED: ALDACTONE100 MG PO (14:52)
[2018-10-09] MEDS ORDERED: SORINE 80 MG TA80 M1 PO (14:53)
--- NOTE | 2018-10-09 18:02 | EKG ---
[place] [address] ELECTROCARDIOGRAM REPORT Name: ABDULAZIZ ENCISO Room: [address] DIS IN M.R.#: [id number] Admission: 09/29/18 Attend Phys: Poncho Connelly MD Discharge: 10/09/18 Date of : 44 Report #: [id number] THIS REPORT FOR: //name// [facility] Test Date: 2018-10-09 Test Time: 12:23:25 Pat Name: ABDULAZIZ ENCISO Department: Room: [address] Gender: M Crystal Lapper: : 1940 Requested By: Gutierrez Amato Order Number: [id number] Reading MD: Arjun Medina Measurements Intervals Noti Rate: 151 P: 0 SD: QRS: -12 QRSD: 140 T: 64 QT: 275 QTc: 436 Interpretive Statements supraventricular tachycardia Compared to ECG 12/15/2015 01:45:13 Sinus rhythm no longer present Ventricular premature complex(es) no longer present Electronically Signed On 10-09-2018 18:02:19 CDT by Arjun Medina [email or web address] <ELECTRONICALLY SIGNED> By: Arjun Medina MD, FAC 10/09/18 1802 1223 1223 Arjun Medina MD, [facility] /EPI
--- NOTE | 2018-10-09 18:03 | EKG ---
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
--- NOTE | 2018-10-10 07:50 | CON ---
[address] [address] CONSULTATION Name: ABDULAZIZ ENCISO Room: [address] IN M.R.#: [id number] Admission: 09/29/18 Attend Phys: Poncho Connelly MD Discharge: 10/09/18 Date of : 44 Report #: [id number] THIS REPORT FOR: //name// CC: Fredi Connelly DATE OF SERVICE: 10/09/2018 INFECTIOUS DISEASE CONSULTATION REASON FOR EVALUATION: Nosocomial pneumonia. HISTORY OF PRESENT ILLNESS: Chart reviewed, the patient examined. A 77-year-old with end-stage liver disease, apparently secondary to an adverse drug effect treatment of rheumatoid arthritis he is admitted now to the hospital, transferred for rehabilitation due to profound weakness. He has had issues with recurrent ascites as well as pleural effusions, has undergone several therapeutic procedures, diagnosis have not suggested infection, most recently had developed more dyspnea, increasing O2 requirements, cough and somewhat productive, although he has been unable to clear it and he is on supplemental oxygen at this point. Chest x-ray shows evidence of some infiltrates. We will start empirically on levofloxacin. At this point, he desaturates quite easily with limited activity. He denies any fevers. He states his appetite has been fair. No significant ongoing gastrointestinal complaints. He has had some intermittent nausea. He is not encephalopathic. ALLERGIES: LISTED TO SULFA, AMOXICILLIN, METFORMIN, LOSARTAN. CURRENT MEDICINE: Include prednisone, benzonatate, levofloxacin, ipratropium/albuterol inhaler, guaifenesin, furosemide, spironolactone, insulin, lisinopril, doxycycline which he takes as an ongoing chronic suppressive therapy, ascorbic acid, folic acid, atorvastatin, p.r.n. analgesics and antiemetics. PAST MEDICAL HISTORY: Known history of rheumatoid arthritis, has known vasculopathy with previous aortocoronary bypass grafting, has had stents, diabetes mellitus type 2, insulin requiring, history of hypertension, hyperlipidemia, anxiety, atrial fibrillation, cirrhosis of liver. SOCIAL HISTORY: Former smoker. No ethanol. FAMILY HISTORY: Noncontributory. REVIEW OF SYSTEMS: Otherwise unremarkable review of systems with the exception noted in the above [place] [address] CONSULTATION Name: BADULAZIZ ENCISO Room: [address]#: [id number] Admission: 09/29/18 Attend Phys: Poncho Connelly MD Discharge: 10/09/18 Date of : 42 Report #: [id number] PHYSICAL EXAMINATION: GENERAL: Appears chronically ill, undernourished. He is alert, cooperative. He is generally lucid. VITAL SIGNS: Temperature 97.8, he did have a T-max of 100.2 early in the morning of , pulse 84, respirations 20, blood pressure 103/53, saturations borderline at 90% on 2 liters nasal cannula. HEENT: Normocephalic. Extraocular muscles intact. NECK: Supple. LUNGS: Diminished breath sounds. Overall scattered crackles at the bases. HEART: Irregular. Do not appreciate murmur. ABDOMEN: Distended, consistent with ascites and somewhat firm. There are no overt palpable tenderness to suggest peritonitis. EXTREMITIES: Distal lower extremities have 1+ edema. SKIN: Shows changes of chronic liver disease, although he is not jaundiced. GENITOURINARY AND RECTAL: Deferred. LABORATORY AND DIAGNOSTIC DATA: Electrolytes: Sodium 131, potassium 4.4, chloride 94, bicarb is 29, anion gap of 8, BUN and creatinine 12 and 0.7, alk phos of 188, total protein of 5.6, albumin of 1.7, estimated GFR of 110. CBC: White count of 10.4, H and H 9.3 and 27.8, platelets of 140. Sed rate of 17. CRP of 125.4. Abdominal fluid culture was sterile. Sputum culture in progress. Gram stain did show mixed picture. ASSESSMENT: Pneumonitis. The patient has advanced liver disease that is really treated as immunosuppressed, he is on therapy with levofloxacin, at this point he is not overtly toxic. He did during the course of the examination regained his comfort in terms of breathing difficulty after having walked 1 week in the [place]. He is unable to produce sputum at this point. We will see how he does clinically. We could broaden his antimicrobial coverage as required. He remains quite tenuous. <ELECTRONICALLY SIGNED> By: Hayder Naidu MD 10/10/18 0750 1208 1512Jonaty Naidu MD /nt
--- NOTE | 2018-10-10 11:08 | PATH ---
[address] [address] PATHOLOGY RPT PROCEDURE Name: ABDULAZIZ ENCISO Room: [address] IN .R.#: [id number] Admission: 09/29/18 Date of : 44 Discharge: 10/09/18 Report #: [id number] Path Case #: [id number] Accession Number: [id number] . 01 Material submitted: . LIVER BIOPSY . 01 Clinical history: . Sepsis . 02 Diagnosis: Liver biopsy: - Benign liver with minimal, nonspecific, non-specific chronic lobular inflammation and hepatocellular unrest, and suggestion of stasis without evidence of cirrhosis. See comment. LBQ/10/09/2018 . 02 Comment: A panel of properly controlled special stains performed on A1 shows the following results: . Iron - Minimal staining in Kupffer cells Trichrome and reticulin - Normal hepatic plates without evidence of fibrosis PAS with and without diastase - No evidence of diastase positive globules . The core biopsies show benign liver with minimal chronic lobular inflammation including few histiocytes and generally in association with hepatocellular unrest and bile ducts/portal tracts appear normal without plasma cells, eosinophils or granulomas. There is also a suggestion of stasis. . Reviewed with Dr. Melany Gruber who agrees with the diagnosis. (ELISSA/db; 10/06/2018) . Special stains are noted above. . 02 Electronically signed: . Gurjit Lewis MD, Pathologist NPI- [id number] . 01 Gross description: . The specimen is received in formalin, labeled "Abdulaziz Enciso, liver biopsy", are two mcmahon-brown needle cores measuring 1.2 cm, 1.0 cm in length with an average 0.1 cm diameter. The specimen is entirely submitted in A1-A2. ([facility]; 10/04/2018) [facility] [place]/[place] [address] PATHOLOGY RPT PROCEDURE Name: ABDULAZIZ ENCISO Room: [address] IN [facility]#: [id number] Admission: 09/29/18 Date of : 44 Discharge: 10/09/18 Report #: [id number] Path Case #: [id number] . 02 Pathologist provided ICD-10: K73.9 . 02 CPT . 237635, 107449, 186957, 232602, 134050, 516997 Specimen Comment: A courtesy copy of this report has been sent to Specimen Comment: [phone], . Specimen Comment: Report sent to / DR EMANUEL Specimen Comment: A duplicate report has been generated due to demographic updates. Performed at: [address], [place], [place] [id number] MD Francois Mayer MD Phone: [phone] Performed at: 02 [facility] [address], [place], [place] [id number] MD Gurjit Lewis MD Phone: [phone]
--- NOTE | 2018-10-10 14:17 | CON ---
[address] [address] CONSULTATION Name: ABDULAZIZ ENCISO Room: [address] IN M.R.#: [id number] Admission: 09/29/18 Attend Phys: Poncho Connelly MD Discharge: 10/09/18 Date of : 42 Report #: [id number] THIS REPORT FOR: //name// CC: PAUL Connelly DATE OF SERVICE: 10/09/2018 HISTORY OF PRESENT ILLNESS: The patient is a 77-year-old white male who I was asked to see in the hospital after he was noted to be tachycardic. The history is obtained from the patient as well as some of his old records. The patient has an extensive and complicated past medical history. He states that he had double vessel coronary bypass here at [facility] in 1993. He has been followed by Dr. Bergman. He had a coronary stent placed in 2007, and his last coronary stent was about 8 months ago. He also has a history of paroxysmal atrial fibrillation, has been cardioverted in the past. He states that Dr. Bergman told him he would need to go on Eliquis in the future. He also has a history of rheumatoid arthritis and is on methotrexate. Unfortunately, he developed cirrhosis. He recently was admitted to [facility] on 09/22 and was diagnosed with sepsis. He was here for about 7 days. He was then transferred to rehabilitation here at [facility] on 09/29. He has been undergoing rehabilitation. Recently, he underwent paracentesis for ascites. Today, he is noted to be tachycardic. An ECG showed a narrow complex tachycardia. Cardiology consultation requested. He denies recent chest pain, shortness of breath, palpitations. He has felt weak. He has had no bleeding problems. PAST MEDICAL HISTORY: He has had gallbladder removed, hernia repair, diabetes, hyperlipidemia. There is no history of hypertension. CURRENT MEDICATIONS: Consist of Cardizem-CD, prednisone, inhaler, furosemide, spironolactone. He is on insulin, Lipitor. FAMILY HISTORY: Positive for heart disease. SOCIAL HISTORY: He is . He and his live in [place], [place]. Quit smoking years ago. No alcohol abuse. REVIEW OF SYSTEMS: He has had no history of stroke, asthma, peptic ulcer disease, liver disease, cancer, psychiatric illness. PHYSICAL EXAMINATION: GENERAL: Revealed an elderly, frail-appearing male who appeared in no distress. VITAL SIGNS: He had a blood pressure 100/60, pulse is 90, he is afebrile. HEENT: He was anicteric, conjunctiva pink[place] [address] CONSULTATION Name: ABDULAZIZ ENCISO Room: [address] IN [facility]#: [id number] Admission: 09/29/18 Attend Phys: Poncho Connelly MD Discharge: 10/09/18 Date of : 44 Report #: [id number] NECK: Veins do not appear distended. CHEST: Clear to auscultation. CARDIOVASCULAR: Regular rate and rhythm. ABDOMEN: Soft. EXTREMITIES: Had pitting edema. SKIN: Cool and dry. DIAGNOSTIC DATA: ECG from earlier today showed a narrow complex tachycardia at 150 beats per minute consistent with a supraventricular tachycardia of undetermined mechanism. Possible AV node reentry tachycardia cannot be excluded. After receiving IV digoxin currently, electrocardiogram shows sinus rhythm with incomplete right bundle-branch block. His workup, he had a chest x-ray last week that showed small effusions, small amount of edema. LABORATORY DATA: His sodium 131, potassium 4.4, creatinine 0.7. His alkaline phosphatase 188, albumin is only 1.7. His white blood cell count 10.4, hemoglobin 9.3. IMPRESSION AND RECOMMENDATIONS: 1. Supraventricular tachycardia. Possible AV node reentry tachycardia. The patient has a previous history of atrial fibrillation. He currently is on a calcium sherin. At this time, I would recommend starting antiarrhythmic therapy. I will recommend starting sotalol. The patient does not appear to be very good candidate for anticoagulation at this time due to recent paracentesis. 2. Coronary artery disease. Previous bypass surgery and stents. I would continue aspirin a day. 3. Diabetes. 4. Hyperlipidemia. The patient is on a statin drug. 5. Rheumatoid arthritis. 6. Cirrhosis. Recent paracentesis. 7. Anemia. No history of bleeding. <ELECTRONICALLY SIGNED> By: Arjun Medina MD, FACC 10/10/18 1417 1252 1729Dagina Medina MD, FAC /nt
== END 2018-10-09 14:40 | disposition short-term general hospital (02) | DRG 947 ==
LOC: M.REH 17:01
PROVIDERS: Internal Medicine; Internal Medicine Gastroenterology; ADMIT Physical Medicine & Rehabilitation
DX: R53.81 Other malaise (principal); A41.9 Sepsis, unspecified organism; J18.9 Pneumonia, unspecified organism; J96.90 Respiratory failure, unspecified, unspecified whether with hypoxia or hypercapnia; E43 Unspecified severe protein-calorie malnutrition; G93.40 Encephalopathy, unspecified; R18.8 Other ascites; I85.10 Secondary esophageal varices without bleeding; E11.65 Type 2 diabetes mellitus with hyperglycemia; M19.90 Unspecified osteoarthritis, unspecified site; I25.10 Atherosclerotic heart disease of native coronary artery without angina pectoris; I48.91 Unspecified atrial fibrillation; I10 Essential (primary) hypertension; E78.5 Hyperlipidemia, unspecified; K74.60 Unspecified cirrhosis of liver; K21.9 Gastro-esophageal reflux disease without esophagitis; I25.2 Old myocardial infarction; F41.9 Anxiety disorder, unspecified; M06.9 Rheumatoid arthritis, unspecified; D69.6 Thrombocytopenia, unspecified; J40 Bronchitis, not specified as acute or chronic; Z88.2 Allergy status to sulfonamides; Z88.8 Allergy status to other drugs, medicaments and biological substances; Z85.828 Personal history of other malignant neoplasm of skin; Z87.891 Personal history of nicotine dependence; Z79.01 Long term (current) use of anticoagulants; Z68.27 Body mass index [BMI] 27.0-27.9, adult; Z95.1 Presence of aortocoronary bypass graft; Z90.49 Acquired absence of other specified parts of digestive tract; Z95.5 Presence of coronary angioplasty implant and graft; Z89.021 Acquired absence of right finger(s); Z88.1 Allergy status to other antibiotic agents; Z87.01 Personal history of pneumonia (recurrent); Z79.4 Long term (current) use of insulin; Z82.49 Family history of ischemic heart disease and other diseases of the circulatory system

== ENCOUNTER 2018-10-09 13:36 | Inpatient (IN) | payer MEDICARE, BC ==
[~2018-10-09] VITALS: Ht 157.5 cm; Wt 67.9 kg
--- NOTE | ~2018-10-09 | EKG ---
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
--- NOTE | ~2018-10-09 | EKG ---
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
[2018-10-09] MEDS ORDERED: LEVAQUIN 500 M500 M2 PO (14:43)
[2018-10-09] MEDS ORDERED: MUCINEX600 MG PO (14:46)
[2018-10-09] MEDS ORDERED: LITE COAT ASPI325 MG PO (14:46)
[2018-10-09] MEDS ORDERED: DILTIAZEM HCL30 MG PO (14:47)
[2018-10-09] MEDS ORDERED: DOXYCYCLINE 10100 MG PO (14:48)
[2018-10-09] MEDS ORDERED: NOVOLOG100 UNIT/1 SUBQ (14:50)
[2018-10-09] MEDS ORDERED: ALDACTONE100 MG PO (14:52)
[2018-10-09] MEDS ORDERED: SORINE 80 MG TA80 M1 PO (14:53)
--- NOTE | 2018-10-09 15:10 | NUR ---
PT ORIENTED TO ROOM 212. TELE PLACED AND BED IS LOW AND LOCKED, SIDE RAILS UPX 3, CALL LIGHT IN REACH. WILL CONTINUE TO ASSESS.
--- NOTE | 2018-10-09 15:55 | NUR ---
ASSESS PT ABOUT FLU VACCINATION STATUS. PT STATES THAT HE CAN T REALLY REMEMBER. PT CAME FROM [facility]. CHECK WITH PHARMACY AT [facility] NO VACCINATION GIVEN. WILL ALLOW ATTENDING TO ASSESS FOR FLUE VACCINATION THERE MAY BE A REASON IT WAS NOT GIVEN.
[2018-10-09 16:29] VITALS: BP 123/48
--- NOTE | 2018-10-09 17:56 | NUR ---
PT HAD SHORT EPISODE OF BRADYCARDIA IN THE 40S. CONTACT DR. LOVING AND INFORM OF EPISODE AND THAT PT SBP IS >100 AND NO DIZZYNESS. INSTRUCTED TO CONTINUE TO MONITOR PT AND IF ANYMORE EPISODES HOLD CARDIZEM. WILL CONTINUE TO ASSESS.
[2018-10-09 20:00] VITALS: BP 105/60
[2018-10-10] VITALS: BP 100/53
--- NOTE | 2018-10-10 02:29 | NUR ---
PT ALERT ORIENTED. VOIDS PER URINAL. UP IN ROOM WITH WALKER. DENIES PAIN. AMBIEN GIVEN HS IN SMALLER DOSE THAN PT TAKES AT HOME ORDERED PER DR GARCIA. RESTING QUIETLY. TELEMETRY SHOWS SB PACS/SR. BETA PACE HELD HS FOR HR LESS THAN 60.
[2018-10-10 04:33] VITALS: BP 93/45
[2018-10-10 05:21] LABS: ABSOLUTE LYMPHOCYTES 0.3 thou/uL (0.8-5.3); ABSOLUTE MONOCYTES 0.4 thou/uL (0.0-1.2); ABSOLUTE NEUTROPHILS 6.4 thou/uL (1.6-8.1); BASOPHILS 0.4 %; EOSINOPHILS 0.1 %; HEMATOCRIT 27.5 % (42.0-52.0); LYMPHOCYTES 3.7 %; MCHC 32.9 g/dL (28.0-37.0); MONOCYTES 5.5 %; MPV 8.8 fl. (7.2-11.1); NUCLEATED RBCS 0 /100WBC; PLATELET COUNT* 140 thou/uL (150-400); POLYS 90.3 %; RBC 3.93 mil/uL (4.50-6.00); WBC 7.1 thou/uL (4.0-11.0)
--- NOTE | 2018-10-10 05:31 | NUR ---
PT STATED HE SLEPT GOOD. SCDS PLACED ON PT THIS SHIFT.
[2018-10-10 05:56] LABS: CALCIUM 7.9 mg/dL (8.5-10.1); CREATININE 0.8 mg/dL (0.6-1.3); POTASSIUM 4.4 mmol/L (3.5-5.1)
[2018-10-10 07:30] VITALS: BP 102/48
--- NOTE | 2018-10-10 12:02 | NUR ---
Pt is A&O. Resides at home with his . Pt admitted from [facility] acute rehab for Afib. Pt is normally active and independent. No DME. No hx of HH or SNF. Strong support sx. Pt plans to return home at [place], and wants to complete outpt PT at [facility] in [place], CM will fax orders at [place]. [facility] p:[phone], f:[phone]
[2018-10-10 12:22] VITALS: BP 109/62
--- NOTE | 2018-10-10 15:18 | NUR ---
VSS, ASSUMED CARE IN THE AM, ASSESSMENT PERFOMRED AND CHARTED, FALL PRECAUTIONS IN PLACE AND CALL LIGHT IN REACH, PT IS A&O4 AND UP AD MIGUEL ÁNGEL, ON 2L NC AND DENIES ANY PAIN, HIS GAOL IS TO IMPROVE ACTIVITY AND SIT UP IN CHAIR, PT IS TRACING SR ON THE MONITOR, AND MAYBE UP FOR D/C ANGELA, WILL FOLLOW WITH PLAN OF CARE.
[2018-10-10 16:53] VITALS: BP 101/53
--- NOTE | 2018-10-10 17:09 | EKG ---
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1940 Requested By: Arjun Medina Order Number: [id number] Denise MD: Eyad Baker Measurements Intervals [place] Rate: 41 P: -20 ND: 191 QRS: -3 QRSD: 106 T: 61 QT: 513 QTc: 424 Interpretive Statements Sinus bradycardia Atrial premature complex Low voltage, precordial leads Compared to ECG 10/09/2018 12:30:35 Atrial premature complex(es) now present Low QRS voltage now present Sinus tachycardia no longer present Right bundle-branch block no longer present Ventricular premature complex(es) no longer present Electronically Signed On 10-10-2018 17:09:31 CDT by Eyad Baker [email or web address] <ELECTRONICALLY SIGNED> By: Eyad Baker MD, FAC 10/10/18 1709 0852 0852 Eyad Baker MD, [facility] /EPI
[2018-10-10 20:00] VITALS: BP 120/61
[2018-10-11] VITALS (8 sets, daily range): BP systolic 107–128; BP diastolic 52–73
--- NOTE | 2018-10-11 04:46 | NUR ---
patient progressing towards discharge goals. HR remains <50. sotalol held per dr. pal d/t low HR. has no voiced concerns at this time. bed to lowest positon. call light within reach. feet were elevated all night to help with edema in lower legs. pt is hoping to go home today. has no current concerns at this time. will continue to monitor.
[2018-10-11 05:59] LABS: ABSOLUTE BASOPHILS 0.1 thou/uL (0.0-0.2); ABSOLUTE EOSINOPHILS 0.1 thou/uL (0.0-0.7); ABSOLUTE LYMPHOCYTES 0.5 thou/uL (0.8-5.3); ABSOLUTE MONOCYTES 0.4 thou/uL (0.0-1.2); ABSOLUTE NEUTROPHILS 7.4 thou/uL (1.6-8.1); BASOPHILS 1.3 %; EOSINOPHILS 0.9 %; HEMATOCRIT 29.9 % (42.0-52.0); HEMOGLOBIN 9.8 gm/dL (14.0-18.0); LYMPHOCYTES 6.2 %; MCH 22.8 pg (26.0-34.0); MCHC 32.9 g/dL (28.0-37.0); MCV 69.4 fL (80.0-100.0); MONOCYTES 4.8 %; MPV 8.5 fl. (7.2-11.1); NUCLEATED RBCS 0 /100WBC; PLATELET COUNT* 159 thou/uL (150-400); POLYS 86.8 %; RDW-CV 21.7 % (10.5-14.5); WBC 8.6 thou/uL (4.0-11.0)
[2018-10-11 06:04] LABS: ALBUMIN 1.8 g/dL (3.4-5.0); CALCIUM 8.2 mg/dL (8.5-10.1); CREATININE 0.7 mg/dL (0.6-1.3); POTASSIUM 4.4 mmol/L (3.5-5.1); TOTAL BILIRUBIN 0.3 mg/dL (<0.1-1.0); TOTAL PROTEIN 5.5 g/dL (6.4-8.2)
--- NOTE | 2018-10-11 10:35 | NUR ---
Spoke with , anticipate that Pt will be ready to dc home tomorrow with outpt PT at [facility] in [place].
--- NOTE | 2018-10-11 14:01 | 2DMMODE ---
[place] [address] 2 D/M-MODE ECHOCARDIOGRAM Name: ABDULAZIZ ENCISO Room: [address] IN [facility]#: [id number] Admission: 10/09/18 Attend Phys: Gutierrez Amato, Discharge: Date of : 44 Date of Service: 10/11/18 [facility] Report #: [id number] THIS REPORT FOR: //name// APPROVED REPORT Study performed: 10/11/2018 11:00:42 EXAM: Comprehensive 2D, Doppler, and color-flow Echocardiogram Patient Location: In-Patient Room #: [facility] Status: routine BSA: 1.72 HR: 69 bpm BP: 128/73 mmHg Rhythm: NSR Other Information Study Quality: Good Indications Congestive Heart Failure 2D Dimensions IVSd: 10.02 (7-11mm) LVOT Diam: 21.20 (18-24mm) LVDd: 53.37 mm PWd: 10.14 (7-11mm) Ascending Ao: 38.18 (22-36mm) LVDs: 42.79 (25-40mm) Aortic Root: 49.34 mm Volumes Left Atrial Volume (Systole) LA ESV Index: 39.70 mL/m2 Aortic Valve AoV Peak Andrew.: 1.91 m/s AO Peak Gr.: 14.59 mmHg LVOT Max P.26 mmHg AO Mean Gr.: 8.09 mmHg LVOT Mean P.98 mmHg LVOT Max V: 1.35 m/s AO V2 VTI: 41.03 cm LVOT Mean V: 0.77 m/s [place] (VTI): 2.38 cm2 LVOT V1 VTI: 27.65 cm AI Andrew: 1.40 m/s2 AI PHT: 792.74 ms Mitral Valve E/A Ratio: 0.72 [place] [address] 2 D/M-MODE ECHOCARDIOGRAM Name: ABDULAZIZ ENCISO Room: [address] IN [facility].#: [id number] Admission: 10/09/18 Attend Phys: Gutierrez Amato, Discharge: Date of : 44 Date of Service: 10/11/18 [facility] Report #: [id number] MV Decel. Time: 207.19 ms MV E Max Andrew.: 0.63 m/s MV PHT: 60.09 ms MVA (PHT): 3.66 cm2 TDI E/Lateral E': 7.00 E/Medial E': 10.50 Medial E' Andrew.: 0.06 m/s Lateral E' Andrew.: 0.09 m/s Pulmonary Valve PV Peak Andrew.: 1.20 m/s PV Peak Gr.: 5.78 mmHg Tricuspid Valve RAP Estimate: 5.00 mmHg TR Peak Gr.: 19.79 mmHg RVSP: 24.00 mmHg PA Pressure: 24.00 mmHg Left Ventricle The left ventricle is normal size. Moderate anteroapical hypokinesis There is normal left ventricular wall thickness. Left ventricular systolic function is moderately decreased. LVEF is 35-40%. The left ventricular diastolic function is normal. Right Ventricle The right ventricle is normal size. The right ventricular systolic function is normal. Atria Left atrium is mildly dilated. The right atrium size is normal. Aortic Valve Mild aortic valve sclerosis. Mild aortic regurgitation. There is no aortic valvular stenosis. Mitral Valve The mitral valve is normal in structure. There is no mitral valve regurgitation noted. No evidence of mitral valve stenosis. Tricuspid Valve The tricuspid valve is normal in structure. Mild tricuspid regurgitation. estimate pa pressure 30 mm Hg Pulmonic Valve The pulmonary valve is normal in [place] [address] 2 D/M-MODE ECHOCARDIOGRAM Name: MICAELAJULIETTEABDULAZIZ Room: [address] IN [facility]#: [id number] Admission: 10/09/18 Attend Phys: Gutierrez Amato, Discharge: Date of : 44 Date of Service: 10/11/18 1400 Report #: [id number] regurgitation. Great Vessels Aortic root is dilated. IVC is normal in size and collapses >50% with inspiration. Pericardium There is no pericardial effusion. <Conclusion> LVEF is 35-40%. Moderate anteroapical hypokinesis Left atrium is mildly dilated. Mild aortic regurgitation. <ELECTRONICALLY SIGNED> By: Arjun Medina MD, FACC 10/11/18 1400 1400 1400 Arjun Medina MD, FACC /INF
--- NOTE | 2018-10-11 14:20 | NUR ---
I HAVE REVIEWED THE STUDENT'S CHARTING.
--- NOTE | 2018-10-11 15:36 | EKG ---
[place] [address] ELECTROCARDIOGRAM REPORT Name: ABDULAZIZ ENCISO Room: [address] ADM IN M.R.#: [id number] Admission: 10/09/18 Attend Phys: Gutierrez mAato MD Discharge: Date of : 44 Report #: [id number] THIS REPORT FOR: //name// 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1940 Requested By: Arjun Medina Order Number: [id number] Denise MD: Arjun Medina Measurements Intervals [place] Rate: 61 P: -40 NE: 201 QRS: -12 QRSD: 83 T: 36 QT: 450 QTc: 454 Interpretive Statements Sinus rhythm Atrial premature complexes Sinus pause Minimal ST depression, lateral leads Borderline prolonged QT interval Baseline wander in lead(s) III,aVF Compared to ECG 10/10/2018 08:52:13 Sinus bradycardia no longer present Electronically Signed On 10-11-2018 15:36:47 CDT by Arjun Medina [email or web address] <ELECTRONICALLY SIGNED> By: Arjun Medina MD, [facility] 10/11/18 1536 0857 0857 Arjun Medina MD, [facility] /EPI
--- NOTE | 2018-10-11 20:00 | NUR ---
RECEIVED REPORT AND ASSUMED CARE OF PT, ASSESSMENT COMPLETED. PT SITTING UP IN CHAIR. ENCOURAGED TO ELEVATED FEET BUT STATES HE WOULD WHEN HE GOT INTO BED. SHAHEEN LOWER LEGS AND FEET WITH 3+ EDEMA. O2 ON AT 1L/NC, ENCOURAGED TO USE IS ON HIS OWN. TELEMETRY ON SHOWING A-FIB WITH SLOW RATE. WILL CONT TO MONITOR AND ASSIST NEEDED.
[2018-10-12] VITALS: BP 119/47
[2018-10-12 04:00] VITALS: BP 128/56
[2018-10-12 05:36] LABS: CALCIUM 8.6 mg/dL (8.5-10.1); CREATININE 0.7 mg/dL (0.6-1.3); MAGNESIUM 1.6 mg/dL (1.8-2.4); POTASSIUM 4.1 mmol/L (3.5-5.1)
--- NOTE | 2018-10-12 06:07 | NUR ---
STATES HE HAS BEEN AWAKE ALL NIGHT. PT NOTED TO BE SLEEPING UNTIL APPROX 0300. VOIDING WELL PER URINAL. HAVING OCC MOIST NON-PROD COUGH. TELEMETRY SHOWING SLOW A-FIB VS SB WITH VERY FREQ PAC. HS GOAL OF SAFETY ACHIEVED. HOURLY ROUNDING OBSERVED.
--- NOTE | 2018-10-12 07:25 | NUR ---
CHNAGE OF SHIFT BEDSIDE REPORT GIVEN PATIENT SEEN IN BED ASLEEP ASSUMED PATIENT CARE
[2018-10-12 08:00] VITALS: BP 108/57
[2018-10-12] MEDS ORDERED: ELIQUIS5 MG PO (09:09)
[2018-10-12 10:20] LABS: % SATURATION 9 % (20-39); IRON 20 ug/dL (50-175)
[2018-10-12 12:15] VITALS: BP 108/64
[2018-10-12 16:56] VITALS: BP 116/64
[2018-10-12 19:50] VITALS: BP 115/65
[2018-10-13] VITALS: BP 127/64
--- NOTE | 2018-10-13 03:24 | NUR ---
ASSUMED CARE OF PT AT 1900. PT IS ALERT AND ORIENTED. VSS. PERRLA. NO COMPLAINTS OF PAIN. PT IS UP AD MIGUEL ÁNGEL. PT IS IN SINUS RYTHM ON THE TELEMETRY. PT IS RESTING COMFORTABLY IN BED. RESPIRATIONS ARE EVEN AND NONLABORED. WILL CONTINUE TO MONITOR PT.
[2018-10-13 04:00] VITALS: BP 125/53
--- NOTE | 2018-10-13 07:25 | NUR ---
CHANGE OF SHIFT BEDSIDE REPORT GIVEN PATIENT SEEN AT BEDSIDE, IN BED ASLEEP ASSUMED PATIENT CARE
[2018-10-13 08:00] VITALS: BP 100/60
[2018-10-13 09:44] LABS: CALCIUM 8.4 mg/dL (8.5-10.1); CREATININE 0.7 mg/dL (0.6-1.3); MAGNESIUM 1.6 mg/dL (1.8-2.4)
[2018-10-13 11:30] VITALS: BP 120/61
[2018-10-13 12:41] VITALS: BP 120/61
[2018-10-13] MEDS ORDERED: CEFDINIR300 MG PO (12:52)
[2018-10-13] MEDS ORDERED: PREDNISONE 10 M10 MG PO (12:52)
[2018-10-13] MEDS ORDERED: SORINE 80 MG TA80 M1 PO (12:53)
[2018-10-13] MEDS ORDERED: ASPIR 8181 MG PO (12:54)
[2018-10-13] MEDS ORDERED: BENAZEPRIL HCL5 MG PO (12:54)
--- NOTE | 2018-10-13 15:30 | NUR ---
SECURITY SITE SUPERVISOR INFORMED OF NEED TO FAX OXYGEN REFERRAL TO [facility]. D/C BASEBALL CLUB MANAGER FAXED [facility] PATIENT'S FACESHEET, H&P, AND DME ORDER. [facility] TO DELIVER OXYGEN TANK TO THE PATIENT'S ROOM, AND HOME OXYGEN SUPPLIES TO THE PATIENT'S HOME ADDRESS. CM WILL REMAIN AVIALABLE TO ASSIST AND FOLLOW NEEDED.
--- NOTE | 2018-10-13 15:53 | NUR ---
Pt discharging to home today with home o2 through [facility]. Pt declined HH, wants to do outpt PT instead. Informed that Dr did not order outpt PT, will need to contact his PCP to get that order, Pt voiced understanding.
--- NOTE | 2018-10-13 17:45 | NUR ---
DISCHARGE TO HOME WITH OXYGEN PICC LINE AND HEART MONITOR REMOVED PERSONAL BELONGINGS RETURNED ASSISTED OUT VIA WC TO WAITING DISCHARGE PAPERWORK REVIEWED, ACKNOWLEDGED, AND SIGNED COPIES GIVEN ASSISTED OUT VIA WC IN GOOD CONDITIOM TO WAITING CAR
== END 2018-10-13 17:45 | disposition home or self-care (01) | DRG 441 ==
LOC: M.2W 13:36
PROVIDERS: Family Medicine; ADMIT Internal Medicine
DX: K72.90 Hepatic failure, unspecified without coma (principal); I50.43 Acute on chronic combined systolic (congestive) and diastolic (congestive) heart failure; J96.21 Acute and chronic respiratory failure with hypoxia; E43 Unspecified severe protein-calorie malnutrition; J15.6 Pneumonia due to other Gram-negative bacteria; E87.1 Hypo-osmolality and hyponatremia; I42.9 Cardiomyopathy, unspecified; I47.1 Supraventricular tachycardia; J90 Pleural effusion, not elsewhere classified; M19.90 Unspecified osteoarthritis, unspecified site; E11.9 Type 2 diabetes mellitus without complications; K21.9 Gastro-esophageal reflux disease without esophagitis; I25.10 Atherosclerotic heart disease of native coronary artery without angina pectoris; E78.5 Hyperlipidemia, unspecified; I48.91 Unspecified atrial fibrillation; I11.0 Hypertensive heart disease with heart failure; F41.9 Anxiety disorder, unspecified; F32.9 Major depressive disorder, single episode, unspecified; K74.60 Unspecified cirrhosis of liver; M06.9 Rheumatoid arthritis, unspecified; D63.8 Anemia in other chronic diseases classified elsewhere; D50.9 Iron deficiency anemia, unspecified; Z88.1 Allergy status to other antibiotic agents; Z88.2 Allergy status to sulfonamides; Z88.8 Allergy status to other drugs, medicaments and biological substances; I25.2 Old myocardial infarction; Z86.010 Personal history of colon polyps; Z87.891 Personal history of nicotine dependence; Z68.27 Body mass index [BMI] 27.0-27.9, adult; Z95.1 Presence of aortocoronary bypass graft; Z90.49 Acquired absence of other specified parts of digestive tract; Z95.5 Presence of coronary angioplasty implant and graft; Z89.021 Acquired absence of right finger(s); Z79.899 Other long term (current) drug therapy

== ENCOUNTER 2019-03-28 19:56 | Inpatient (IN) | payer MEDICARE, BC, OTHER ==
[~2019-03-28] VITALS: Ht 152.4 cm; Wt 54.9 kg
--- NOTE | ~2019-03-28 | CON ---
[address] [address] CONSULTATION Name: ABDULAZIZ ENCISO Room: [address] IN .R.#: [id number] Admission: 03/28/19 Attend Phys: Benito Montelongo MD Discharge: Date of : 44 Report #: [id number] THIS REPORT FOR: //name// CC: DERICK physician/PCP PAUL Montelongo DICTATED BY: Flores Ferreira [facility] DATE OF SERVICE: 03/30/2019 Please note at the time of this dictation, the patient was seen and physically examined by myself. REASON FOR CONSULTATION: Cirrhosis and ascites. HISTORY OF PRESENT ILLNESS: This is a 78-year-old male who presented to the Emergency Room after apparently his called the EMS because he was reporting to be more short of breath. It appears that he was at a [facility] and appears that he was not receiving any oxygen while he was there. However, he does have 4-5 liters normally all the time at home. He also was stating he felt like his abdomen was getting a little bit bigger, but he denies that it is any painful; however, he was having worsening of his shortness of breath because of not having his oxygen and not related to abdominal distention. The patient is not complaining of any shortness of air at this time while he is on oxygen and not complaining of any abdominal pain. It is noted that he does have some ascites, however. The patient normally gets most of his care at [facility], which he states he was there earlier in the summer and he said he had a couple of paracentesis obtained, but only very small amounts were removed, possibly a liter. He cannot recall if he has been on diuretics or not. It appears on his admission, medications from the custodial that diuretics were not being utilized while he was there. It was noted that he was taking his Eliquis, his blood thinner, however. The patient was last seen by us back during hospitalization here in September in which he had paracentesis done. He had been told he already had cryptogenic cirrhosis likely related to previous methotrexate medication that he used for his RA in the past. At that time, the patient was placed on spironolactone 100 mg and Lasix 40 mg. He is unclear if he was ever taking it and for how long and it is unclear through the records as well. The patient states he feels a little confused and unable to track at this time. He has not had a bowel movement for several days he states because he has not had any much to eat. ALLERGIES: SULFA, AMOXICILLIN, METFORMIN AND LOSARTAN. MEDICATIONS FROM HOME: It appears zinc, magnesium, fish oil, Bumex, Anoro Ellipta, vitamin C, prednisone, Nexium, folic acid, [place], Eliquis, [place] [address] CONSULTATION Name: ABDULAZIZ ENCISO Room: [address] IN .R.#: [id number] Admission: 03/28/19 Attend Phys: Benito Montelongo MD Discharge: Date of : 42 Report #: [id number] multivitamin, Lipitor and Januvia. 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 He has had Donald's neuromas and skin cancers. PAST SURGICAL HISTORY: Oral surgery, he has had an EGD back in September 2018, CABG, and cholecystectomy. FAMILY HISTORY: Noncontributory. SOCIAL HISTORY: Previous exposure to tobacco use. Denies any alcohol or illegal drug use. REVIEW OF SYSTEMS: Twelve-point review of systems is essentially negative except what is mentioned in the HPI. PHYSICAL EXAMINATION: VITAL SIGNS: Temperature 36.8, pulse 71, respirations 17 and blood pressure 113/60. HEART: Regular rate and rhythm. ABDOMEN: Slight distention. Positive fluid wave, but very soft and no pains noted throughout and bowel sounds present in all 4 quadrants. LABORATORY DATA: Hemoglobin is 10.1, white count is 6.7 and platelets 218. Potassium is 3, GFR is 131. PT is 12.5 and INR is 1.2. Total bilirubin 0.4, alkaline phosphatase 165. ALT 27 and AST 36. Abdominal CT that was recently done shows some bilateral pleural effusions, cardiomegaly, liver small and nodular, ascites noted. Gallbladder absent. Mild stool throughout the entire colon. IMPRESSION: 1. Cirrhosis cryptogenic related to likely methotrexate use in the past. 2. Ascites. 3. Constipation. 4. HE. 5. Anticoagulant therapy, atrial fibrillation, on Eliquis. PLAN: 1. Obtain his records from [facility]. 2. Heart healthy diet. 3. We will start some lactulose 20 grams and 30 mL daily. 4. We will obtain labs in the a.m. CBC, CMP, PT, INR. 5. Further recommendations to be made once the above [place] [address] CONSULTATION Name: ABDULAZIZ ENCISO Room: [address] IN [facility]#: [id number] Admission: 03/28/19 Attend Phys: Benito Montelongo MD Discharge: Date of : 42 Report #: [id number] Thank you for allowing us to participate in this patient's care. Please do not hesitate to call with any questions in regard to this consult. By: [id number] Love MD /dhaval
[2019-03-28 19:56] VITALS: BP 116/64
[~2019-03-28 19:56] MED LIST changes: +ALDACTONE100 MG PO; +ANORO ELLIPTA1 EACH INH; +BENAZEPRIL HCL5 MG PO; +CEFDINIR300 MG PO; +DEMADEX20 MG PO; +DILTIAZEM HCL30 MG PO; +LEVAQUIN 500 M500 M2 PO; +LIPITOR40 MG PO; +LITE COAT ASPI325 MG PO; +MUCINEX600 MG PO; +NOVOLOG100 UNIT/1 SUBQ; +PREDNISONE 10 M10 MG PO; +SORINE 80 MG TA80 M1 PO
[2019-03-28] MEDS ORDERED: BUMETANIDE0.25 MG/1 INH (20:06)
[2019-03-28] MEDS ORDERED: FISH OIL 1,001000 M2 PO (20:06)
[2019-03-28] MEDS ORDERED: MAGOX 400400 MG PO (20:07)
[2019-03-28 20:40] LABS: HEMATOCRIT 33.1 % (42.0-52.0); HEMOGLOBIN 10.7 gm/dL (14.0-18.0); MCH 22.5 pg (26.0-34.0); MCHC 32.4 g/dL (28.0-37.0); MCV 69.3 fL (80.0-100.0); MPV 8.2 fl. (7.2-11.1); NUCLEATED RBCS 0 /100WBC; PLATELET COUNT* 233 thou/uL (150-400); RBC 4.78 mil/uL (4.50-6.00); RDW-CV 23.6 % (10.5-14.5); WBC 12.5 thou/uL (4.0-11.0)
[2019-03-28 20:50] LABS: INR 1.2; PROTIME 12.5 Seconds (9.20-11.50)
[2019-03-28 20:51] LABS: ANION GAP 6 mmol/L (7-16); BUN 16 mg/dL (7-18); CALCIUM 8.1 mg/dL (8.5-10.1); CHLORIDE 99 mmol/L (98-107); CO2 31 mmol/L (21-32); CREATININE 0.6 mg/dL (0.6-1.3); GLUCOSE 140 mg/dL (70-99); POTASSIUM 3.3 mmol/L (3.5-5.1); SODIUM 136 mmol/L (136-145)
[2019-03-28 21:01] LABS: ALBUMIN 1.9 g/dL (3.4-5.0); ALKALINE PHOSPHATASE 189 U/L (46-116); LIPASE 89 U/L (73-393); SGOT 43 U/L (15-37); SGPT 31 U/L (30-65); TOTAL BILIRUBIN 0.6 mg/dL (<0.1-1.0); TOTAL PROTEIN 6.3 g/dL (6.4-8.2); TROPONIN-I LEVEL <0.06 ng/mL (<0.06)
[2019-03-28 21:09] LABS: ABSOLUTE EOSINOPHILS 0.1 thou/uL (0.0-0.7); ABSOLUTE LYMPHOCYTES 0.5 thou/uL (0.8-5.3); ABSOLUTE MONOCYTES 0.4 thou/uL (0.0-1.2); ABSOLUTE NEUTROPHILS 11.5 thou/uL (1.6-8.1)
[2019-03-28 21:10] LABS: ANISOCYTOSIS 2+; OVALOCYTES 1+
[2019-03-28 21:12] LABS: HYPOCHROMASIA 1+; MICROCYTES 3+; PLATELET ESTIMATE ADEQUATE
[2019-03-28 22:15] VITALS: BP 103/58
[2019-03-28 22:30] VITALS: BP 109/58
[2019-03-29 01:00] VITALS: BP 103/57
[2019-03-29] MEDS ORDERED: ZINC10 MG PO (01:47)
[2019-03-29 04:45] VITALS: BP 112/64
--- NOTE | 2019-03-29 05:20 | NUR ---
PT RECIEVED FROM ED IN 211. ALERT AND ORIENTED X4. CALL LIGHT WITHIN REACH AND BED IN LOW POSITION. DENIES PAIN AND SOB. HOURLY ROUNDING DONE FOR PT SAFTEY.
[2019-03-29 09:15] VITALS: BP 110/62
[2019-03-29 11:40] VITALS: BP 98/56
--- NOTE | 2019-03-29 11:51 | NUR ---
Pt is A&O. Resides at home with his . Independent. Pt states that he has been using a walker recently. Pt wears home o2 continuously, provided through [employer]. No hx of HH or SNF. Goal is home at [place]. No needs anticipated. Following.
[2019-03-29 16:00] VITALS: BP 99/63
--- NOTE | 2019-03-29 18:02 | EKG ---
[place] [address] ELECTROCARDIOGRAM REPORT Name: ABDULAZIZ ENCISO Room: [address] ADM IN .R.#: [id number] Admission: 03/28/19 Attend Phys: Benito Montelongo MD Discharge: Date of : 42 Report #: [id number] THIS REPORT FOR: //name// [facility] ED Test Date: 2019-03-28 Test Time: 20:12:19 Pat Name: ABDULAZIZ ENCISO Department: Room: [facility] Gender: M Sand Temperer: FERDINAND : 1940 Requested By: Db Silveira Order Number: [id number] MD: Zelalem Loredo Measurements Intervals [place] Rate: 64 P: -25 CA: 177 QRS: -25 QRSD: 106 T: 26 QT: 453 QTc: 468 Interpretive Statements Sinus rhythm Atrial premature complex Inferior infarct, old Baseline wander in lead(s) V2 Compared to ECG 10/11/2018 08:57:03 Myocardial infarct finding now present Sinus pause or arrest no longer present ST (T wave) deviation no longer present Electronically Signed On 03-29-2019 18:02:13 CDT by Zelalem Loredo [email or web address] <ELECTRONICALLY SIGNED> By: Fco Loredo MD, [facility] 03/29/19 1802 11 11 Fco Loredo MD, [facility] /EPI
--- NOTE | 2019-03-29 20:01 | NUR ---
I ASSUMED CARE OF THE PATIENT AT 0700. HE IS ALERT AND ORIENTED X4 AND IS ON BEDREST. HOURLY ROUNDING IS DONE AND PATIENT NEEDS ARE MET. PAIN IS MANAGED WITH PRN MEDS. BED IS IN THE LOW LOCKED POSITION AND CALL LIGHT IS IN REACH. TURNS WERE MAINTAINED. PATIENT USED URINAL. NPO STATUS WAS MAINTAINED AND GI WAS CONSULTED. SON AND GRANDSON CAME TO VISIT FOR A WHILE. AIC WAS ORDERED. ALL MEDICAL RECORDS WERE REQUESTED FROM [facility] FROM 03/28/19 AM DISCHARGE PRIOR TO GOING TO [place]. WILL CONTINUE TO MONITOR.
[2019-03-30 00:32] VITALS: BP 107/57
[2019-03-30 04:35] LABS: HEMATOCRIT 31.8 % (42.0-52.0); HEMOGLOBIN 10.1 gm/dL (14.0-18.0); MCH 21.8 pg (26.0-34.0); MCHC 31.8 g/dL (28.0-37.0); MCV 68.4 fL (80.0-100.0); MPV 8.2 fl. (7.2-11.1); RBC 4.65 mil/uL (4.50-6.00); RDW-CV 24.3 % (10.5-14.5); WBC 6.7 thou/uL (4.0-11.0)
[2019-03-30 04:46] VITALS: BP 113/60
[2019-03-30 04:52] LABS: ALBUMIN 1.6 g/dL (3.4-5.0); CALCIUM 7.9 mg/dL (8.5-10.1); CREATININE 0.6 mg/dL (0.6-1.3); MAGNESIUM 1.5 mg/dL (1.8-2.4); TOTAL BILIRUBIN 0.4 mg/dL (<0.1-1.0); TOTAL PROTEIN 5.6 g/dL (6.4-8.2)
--- NOTE | 2019-03-30 07:49 | NUR ---
PT CARE ASSUMED AT 1930. SAT MAINTAINED IN O2. ALERT AND ORIENTED BUT FORGETFUL. CALL LIGHT WITHIN REACH AND BED IN LOW POSITION. HOURLY ROUNDING DONE FOR PT SAFETY.
--- NOTE | 2019-03-30 10:47 | NUR ---
Spoke with Pt's son, Pt has actually been skilled at [facility] in [place], family wants Pt to dc to [facility]. Faxed referral to Radha at [facility]. Pt should be ready to dc this weekend.
[2019-03-30 12:02] VITALS: BP 105/62
[2019-03-30 15:58] VITALS: BP 111/59
[2019-03-30 20:20] VITALS: BP 94/66
[2019-03-31] VITALS: BP 102/59
[2019-03-31 03:06] LABS: GLYCOHEMOGLOBIN (HGB A1C) 6.3 % (4.8-5.6)
[2019-03-31 04:00] VITALS: BP 120/68
--- NOTE | 2019-03-31 05:22 | NUR ---
PT CARE ASSUMED AT 1930. SAT MAINTAINED IN O2. CALL LIGHT WITHIN REACH AND BED IN LOW POSITION. ALERT AND ORIENTED X4 BUT FORGETFUL AT TIMES. SOB WITH EXERTION. HOURLY ROUNDING DONE FOR PT SAFETY.
[2019-03-31 05:35] LABS: HEMATOCRIT 30.5 % (42.0-52.0); MCH 22.4 pg (26.0-34.0); MCHC 32.7 g/dL (28.0-37.0); MCV 68.5 fL (80.0-100.0); MPV 8.2 fl. (7.2-11.1); RBC 4.45 mil/uL (4.50-6.00); RDW-CV 23.3 % (10.5-14.5); WBC 6.9 thou/uL (4.0-11.0)
[2019-03-31 05:37] LABS: INR 1.3; PROTIME 13.1 Seconds (9.20-11.50)
[2019-03-31 05:55] LABS: ALBUMIN 1.7 g/dL (3.4-5.0); CALCIUM 7.9 mg/dL (8.5-10.1); CREATININE 0.6 mg/dL (0.6-1.3); MAGNESIUM 1.6 mg/dL (1.8-2.4); POTASSIUM 4.2 mmol/L (3.5-5.1); TOTAL BILIRUBIN 0.4 mg/dL (<0.1-1.0); TOTAL PROTEIN 5.6 g/dL (6.4-8.2)
[2019-03-31 08:00] VITALS: BP 100/54
[2019-03-31] MEDS ORDERED: PREDNISONE 5 MG5 M1 PO (10:27)
[2019-03-31] MEDS ORDERED: KRISTALOSE20 GM PO (10:30)
[2019-03-31] MEDS ORDERED: ALDACTONE100 MG PO ×2 (10:30→11:40)
--- NOTE | 2019-03-31 10:58 | NUR ---
ASSUMED PATIENT CARE AT 0800. AOX4, UP WITH ASSIST, O2 SAT 90'S 5L NC. TRACING SINUS JENNIFER ON TELE. PT DENIES PAIN, PT FOR DISCHARGE. PT ON 2L FLUID RESTRICTION, PT ACCU CHECK. PT LAST BM TODAY. VSS, AM ASSESSMENT CHARTED, MEDS GIVEN PER MAR, CALL LIGHT WITHIN REACH, HOURLY ROUNDING, WILL CONTINUE TO MONITOR.
[2019-03-31 11:33] VITALS: BP 100/54
--- NOTE | 2019-03-31 11:33 | NUR ---
Pt discharging to home today. CM discussed HH with Pt, Pt wants [facility], faxed referral to [facility]. Family in room and will transport
[2019-03-31] MEDS ORDERED: JANUVIA100 MG PO (11:36)
[2019-03-31] MEDS ORDERED: ZINC50 MG PO (11:39)
[2019-03-31] MEDS ORDERED: PREDNISONE 10 M10 MG PO (11:40)
[2019-03-31] MEDS ORDERED: GLUCOTROL5 MG PO (11:43)
[2019-03-31 11:56] VITALS: BP 110/70
[2019-03-31 11:59] VITALS: BP 100/54
--- NOTE | 2019-03-31 15:11 | NUR ---
DISCHARGED PLAN DISCUSSED WITH THE PATIENT. MEDICATION PACKET/SCRIPT GIVEN. IV, TELE REMOVED. REMINDED TO FOLLOW UP PCP. ALL BELONGINGS PACKED AND CHECKED. LEFT THE UNIT AT 1500 VIA WHEELCHAIR.
[2019-04-02] MEDS ORDERED: AMBIEN 5 MG TABL5 M1 PO (21:44)
[2019-04-02] MEDS ORDERED: ATIVAN0.5 MG PO (21:46)
== END 2019-03-31 15:00 | disposition home health service (06) | DRG 432 ==
LOC: M.ERS 19:56 → M.TBA-ER 21:43 → M.2W 21:43
PROVIDERS: Emergency Medicine Emergency Medical Services; Family Medicine; Nurse Practitioner Adult Health; ADMIT Family Medicine
DX: K74.69 Other cirrhosis of liver (principal); E43 Unspecified severe protein-calorie malnutrition; I50.42 Chronic combined systolic (congestive) and diastolic (congestive) heart failure; R18.8 Other ascites; J44.9 Chronic obstructive pulmonary disease, unspecified; F41.9 Anxiety disorder, unspecified; E78.5 Hyperlipidemia, unspecified; I25.10 Atherosclerotic heart disease of native coronary artery without angina pectoris; Z99.81 Dependence on supplemental oxygen; E11.9 Type 2 diabetes mellitus without complications; K21.9 Gastro-esophageal reflux disease without esophagitis; I11.0 Hypertensive heart disease with heart failure; M06.9 Rheumatoid arthritis, unspecified; Z77.22 Contact with and (suspected) exposure to environmental tobacco smoke (acute) (chronic); K59.00 Constipation, unspecified; I48.2 Chronic atrial fibrillation; E87.6 Hypokalemia; Z68.23 Body mass index [BMI] 23.0-23.9, adult; I25.2 Old myocardial infarction; Z95.1 Presence of aortocoronary bypass graft; Z88.2 Allergy status to sulfonamides; Z88.8 Allergy status to other drugs, medicaments and biological substances; Z90.49 Acquired absence of other specified parts of digestive tract; Z79.01 Long term (current) use of anticoagulants; Z87.891 Personal history of nicotine dependence

== ENCOUNTER → 2019-07-16 | Outpatient (CLI) | payer MEDICARE, BC, OTHER ==
[~2019-07-16] MED LIST changes: +ACETAMINOPHEN325 M1 PO; +ALBUTEROL2.5 MG/0.5 INH; +AMARYL4 MG PO; +BUMETANIDE0.25 MG/1 INH; +CARAFATE 11 GM/10 M1 PO; +DIFLUCAN200 MG PO; +DOXYCYCLINE HYC50 MG PO; +DURAGESIC1 EACH TRANSDERM; +FISH OIL 1,001000 M2 PO; +KRISTALOSE20 GM PO; +LASIX 40 MG TAB40 M1 PO; +LORAZEPAM 0.50.5 MG PO; +MAGNESIUM400 MG PO; +MAGOX 400400 MG PO; +MIRALAX17 GM PO; +MORPHINE 00.5 MG/1 M SUBLING; +MSL20MG/ML PO; +NORCO 7.5-3251 EACH PO; +PANTOPRAZOLE SO40 M1 PO; +SPIRONOLACTONE100 M1 PO; +ZINC10 MG PO; +ZINC50 MG PO
== END | disposition home or self-care (01) ==
LOC: M.ULTRA 12:36
DX: R18.8 Other ascites (principal); R10.9 Unspecified abdominal pain; I11.0 Hypertensive heart disease with heart failure; I50.9 Heart failure, unspecified; E78.5 Hyperlipidemia, unspecified; I48.91 Unspecified atrial fibrillation; I25.10 Atherosclerotic heart disease of native coronary artery without angina pectoris; I25.2 Old myocardial infarction; J44.9 Chronic obstructive pulmonary disease, unspecified; E11.9 Type 2 diabetes mellitus without complications; F41.9 Anxiety disorder, unspecified; M06.9 Rheumatoid arthritis, unspecified; Z98.890 Other specified postprocedural states; Z79.899 Other long term (current) drug therapy; Z79.01 Long term (current) use of anticoagulants; Z88.2 Allergy status to sulfonamides; Z88.8 Allergy status to other drugs, medicaments and biological substances

== ENCOUNTER → 2019-09-03 | Outpatient (CLI) | payer MEDICARE, BC, OTHER | END | disposition home or self-care (01) | LOC: M.ULTRA 08-30 08:30 → M.LAB 11:54 → M.ULTRA 13:00 | DX: R18.8 Other ascites (principal); D64.9 Anemia, unspecified; J44.9 Chronic obstructive pulmonary disease, unspecified; I11.0 Hypertensive heart disease with heart failure; I50.9 Heart failure, unspecified; E11.9 Type 2 diabetes mellitus without complications; I25.10 Atherosclerotic heart disease of native coronary artery without angina pectoris; K21.9 Gastro-esophageal reflux disease without esophagitis; M06.9 Rheumatoid arthritis, unspecified; I48.91 Unspecified atrial fibrillation; I25.2 Old myocardial infarction; F41.9 Anxiety disorder, unspecified; Z98.890 Other specified postprocedural states; Z79.899 Other long term (current) drug therapy; Z79.01 Long term (current) use of anticoagulants; Z95.1 Presence of aortocoronary bypass graft; Z87.891 Personal history of nicotine dependence; Z88.2 Allergy status to sulfonamides; Z88.8 Allergy status to other drugs, medicaments and biological substances ==

== ENCOUNTER 2019-09-28 10:32 | Inpatient (IN) | payer MEDICARE, BC, OTHER ==
[~2019-09-28] VITALS: Ht 167.6 cm; Wt 56.2 kg
[~2019-09-28 10:32] MED LIST changes: +ASA81BEC PO; +CARAFATE1 GM/10 ML PO; +CARVEDILOL12.5 MG PO; +ERYTHROMYCIN250 M1 PO; +LASIX 40 MG TAB40 MG PO; +LORCET 5-325 M1 EACH PO; +MELATONIN3 M1 PO; +PROTONIX40 M2 PO; +XIFAXAN550 M1 PO
[2019-09-28 10:36] VITALS: BP 103/68
[2019-09-28] MEDS ORDERED: MORPHINE 00.5 MG/1 M PO (10:50)
[2019-09-28] MEDS ORDERED: LORAZEPAM2 MG/1 M2 PO (10:51)
[2019-09-28] MEDS ORDERED: LITE COAT ASPI325 MG PO (10:51)
[2019-09-28 11:27] LABS: ABSOLUTE EOSINOPHILS 0.5 thou/uL (0.0-0.7); ABSOLUTE LYMPHOCYTES 0.3 thou/uL (0.8-5.3); ABSOLUTE MONOCYTES 0.6 thou/uL (0.0-1.2); BASOPHILS 0.3 %; EOSINOPHILS 6.2 %; HEMATOCRIT 28.4 % (42.0-52.0); LYMPHOCYTES 3.4 %; MCH 23.2 pg (26.0-34.0); MCHC 31.6 g/dL (28.0-37.0); MCV 73.2 fL (80.0-100.0); MONOCYTES 7.1 %; MPV 6.5 fl. (7.2-11.1); NUCLEATED RBCS 0 /100WBC; PLATELET COUNT* 266 thou/uL (150-400); RBC 3.88 mil/uL (4.50-6.00); RDW-CV 26.5 % (10.5-14.5); WBC 8.4 thou/uL (4.0-11.0)
[2019-09-28 11:50] LABS: CALCIUM 7.7 mg/dL (8.5-10.1); CREATININE 0.5 mg/dL (0.6-1.3); POTASSIUM 4.6 mmol/L (3.5-5.1)
[2019-09-28 12:03] LABS: ALBUMIN 1.9 g/dL (3.4-5.0); MAGNESIUM 1.7 mg/dL (1.8-2.4); TOTAL BILIRUBIN 0.3 mg/dL (<0.1-1.0); TOTAL PROTEIN 6.2 g/dL (6.4-8.2)
[2019-09-28 12:07] LABS: ANISOCYTOSIS 1+; MICROCYTES 1+; PLATELET ESTIMATE ADEQUATE
[2019-09-28 12:08] LABS: HYPOCHROMASIA 1+
[2019-09-28 12:12] LABS: PROTIME 75.2 Seconds (9.20-11.50)
[2019-09-28 12:18] LABS: INR 7.9
[2019-09-28 12:19] LABS: APTT > 198.4 Seconds (25.0-31.3)
--- NOTE | 2019-09-28 16:51 | EKG ---
[place] [address] ELECTROCARDIOGRAM REPORT Name: ABDULAZIZ ENCISO Room: [place] [address] ADM IN .R.#: [id number] Admission: 09/28/19 Attend Phys: Rose Ashby, Discharge: Date of : 44 Date of Service: 09/28/19 [facility] Report #: [id number] THIS REPORT FOR: //name// [facility] ED Test Date: 2019-09-28 Test Time: 10:37:21 Pat Name: ABDULAZIZ ENCISO Department: Room: [facility] Gender: M Ground Host/Hostess: : 1940 Requested By: Raheem Martinez Order Number: [id number] MD: Mau Higgins Measurements Intervals [place] Rate: 56 P: MA: QRS: 6 QRSD: 97 T: 48 QT: 533 QTc: 515 Interpretive Statements Atrial flutter with predominant 4:1 AV block Possible anteroseptal scar Lateral leads are also involved Prolonged QT interval Compared to ECG 09/21/2019 21:14:10 AV block, advanced (high-grade) now present Ventricular premature complex(es) now present Myocardial infarct finding now present Prolonged QT interval now present Electronically Signed On 09-28-2019 16:50:25 CDT by Mau Higgins [email or web address] <ELECTRONICALLY SIGNED> By: Mau Higgins MD, [facility] 09/28/19 1650 1037 1037 Mau Higgins MD, [facility] /EPI
[2019-09-28 20:00] VITALS: BP 109/65
[2019-09-28 21:15] LABS: INR 1.2
[2019-09-29 00:01] VITALS: BP 101/68
[2019-09-29 04:00] VITALS: BP 93/57
[2019-09-29 04:29] LABS: HEMATOCRIT 28.3 % (42.0-52.0); MCH 23.4 pg (26.0-34.0); MCHC 31.8 g/dL (28.0-37.0); MCV 73.7 fL (80.0-100.0); MPV 6.5 fl. (7.2-11.1); RBC 3.84 mil/uL (4.50-6.00); RDW-CV 26.9 % (10.5-14.5); WBC 6.2 thou/uL (4.0-11.0)
[2019-09-29 04:47] LABS: ALBUMIN 1.9 g/dL (3.4-5.0); CALCIUM 7.8 mg/dL (8.5-10.1); CREATININE 0.6 mg/dL (0.6-1.3); POTASSIUM 4.3 mmol/L (3.5-5.1); TOTAL BILIRUBIN 0.4 mg/dL (<0.1-1.0); TOTAL PROTEIN 6.3 g/dL (6.4-8.2)
[2019-09-29 04:48] LABS: INR 1.2; PROTIME 11.9 Seconds (9.20-11.50)
[2019-09-29 05:02] LABS: APTT 31.5 Seconds (25.0-31.3)
[2019-09-29 08:00] VITALS: BP 96/58
[2019-09-29 11:27] VITALS: BP 95/59
[2019-09-29 16:41] VITALS: BP 101/66
[2019-09-29 20:00] VITALS: BP 86/49
[2019-09-30] VITALS: BP 99/57
[2019-09-30 04:00] VITALS: BP 102/66
[2019-09-30 05:01] LABS: HEMATOCRIT 29.7 % (42.0-52.0); HEMOGLOBIN 9.6 gm/dL (14.0-18.0); MCH 23.6 pg (26.0-34.0); MCHC 32.3 g/dL (28.0-37.0); MCV 73.2 fL (80.0-100.0); MPV 6.3 fl. (7.2-11.1); RBC 4.05 mil/uL (4.50-6.00); RDW-CV 27.5 % (10.5-14.5); WBC 6.1 thou/uL (4.0-11.0)
[2019-09-30 05:11] LABS: APTT 28.8 Seconds (25.0-31.3); INR 1.2; PROTIME 12.6 Seconds (9.20-11.50)
[2019-09-30 05:24] LABS: CALCIUM 7.8 mg/dL (8.5-10.1); CREATININE 0.5 mg/dL (0.6-1.3); TOTAL BILIRUBIN 0.4 mg/dL (<0.1-1.0); TOTAL PROTEIN 6.4 g/dL (6.4-8.2)
--- NOTE | 2019-09-30 07:12 | NUR ---
BP DEC, PROVIDER CONTACTED OK TO HOLD LASIX. COREG HELD FOR LOW BP WELL.
[2019-09-30 07:45] VITALS: BP 109/67
[2019-09-30 12:00] VITALS: BP 102/65
[2019-09-30 16:00] VITALS: BP 97/64; BP 99/57
[2019-10-01 03:51] LABS: APTT 30.9 Seconds (25.0-31.3); INR 1.3; PROTIME 13.2 Seconds (9.20-11.50)
[2019-10-01 03:57] LABS: ALBUMIN 2.3 g/dL (3.4-5.0); CALCIUM 7.6 mg/dL (8.5-10.1); CREATININE 0.5 mg/dL (0.6-1.3); MAGNESIUM 1.3 mg/dL (1.8-2.4); TOTAL BILIRUBIN 0.5 mg/dL (<0.1-1.0); TOTAL PROTEIN 6.2 g/dL (6.4-8.2)
[2019-10-01 03:59] LABS: POTASSIUM 2.6 mmol/L (3.5-5.1)
[2019-10-01 04:00] VITALS: BP 104/69
[2019-10-01 04:03] LABS: HEMATOCRIT 26.1 % (42.0-52.0); HEMOGLOBIN 8.5 gm/dL (14.0-18.0); MCH 23.8 pg (26.0-34.0); MCHC 32.6 g/dL (28.0-37.0); MCV 72.9 fL (80.0-100.0); MPV 6.3 fl. (7.2-11.1); RBC 3.58 mil/uL (4.50-6.00); RDW-CV 27.3 % (10.5-14.5); WBC 6.7 thou/uL (4.0-11.0)
--- NOTE | 2019-10-01 07:16 | NUR ---
PATIENT NPO SINCE MIDNIGHT. SCHEDULED FOR PARACENTESIS THIS AM. IV WAS REPLACED WHEN FIELD STICK WAS FOUND NOT TO BE IN. NEW IV PLACED, 22G L ARM. REPLACING POTASSIUM AND MAGNESIUM PER PROTOCOL. NO SIGNIFICANT EVENTS THIS SHIFT. NURSING STAFF FILEMON
[2019-10-01 08:00] VITALS: BP 115/68
[2019-10-01 10:30] LABS: BF RBC <1000 /mm3; TOTAL CELL COUNT 152 /mm3
[2019-10-01 10:31] LABS: CLARITY CLEAR; TOTAL VOLUME 6960 ml
[2019-10-01 10:33] LABS: BF LYMPHOCYTES 23 %; BF MONOCYTES 41 %; BF POLYS 36 %; SOURCE ASCITES
[2019-10-01 12:07] VITALS: BP 100/59
--- NOTE | 2019-10-01 15:18 | NUR ---
ASSUMED CARE OF PT AT 0740. PT RESTING IN BED. PT HAD PARACENTESIS THIS AM- 6,950 OUTPUT PER ULTRASOUND- BANDAGE PLACED TO LLQ- C/D/I. PT HAD CXR TODAY WELL-REFER TO RESULTS. PT A&0X4, COMPLAINED OF PAIN TO BILATERAL SHOULDERS-TREATED WITH PO PRN MORPHINE WITH PARTIAL RELIEF. MED SURG STATUS. ON 3.5L NC SAT UPPER 90'S. PT STATES SHORTNESS OF BREATH AND COMMUNICATING HAS IMPROVED SIGNIFICANTALLY POST PARACENTESIS. PT UP WITH 1-2 ASSIST-WEAKNESS NOTED. PT GOAL FOR TODAY IS PAIN MGMT, TITRATE OXYGEN, REPLACE POTASSIUM AND MAGNESIUM PER ELECTROLYTE PROTOCOL AND IV ALBUMIN. AM ASSESSMENT CHARTED. MEDICATIONS CRUSHED IN APPLESAUCE PER SEP. PT REPOSITIONED EVERY 2 HOURS FOR COMFORT. HOURLY ROUNDING OBSERVED. BED IN LOW POSITION. CALL LIGHT WITHIN REACH. WILL CONTINUE PLAN OF CARE.
--- NOTE | 2019-10-01 16:04 | NUR ---
Pt is A&O. Resides at [facility] and plans to return there at dc. Pt was on [facility] hospice, decided to not resume hospice post last hospital dc, Pt wanted to continue seeking treatment. CM spoke with Torrie at [facility], they can accept Pt back if he decides to follow hospice philosophy. Per GI, they discussed possible pleurex cath with Pt, Pt to think about. CM following.
--- NOTE | 2019-10-01 18:25 | NUR ---
POTASSIUM AND MAGNESIUM BEING REPLACED PER ELECTROLYTE PROTOCOL. REFER TO EMAR. PT COMPLAINED OF PAIN THIS AFTERNOON TO NECK AND SHOULDERS. TREATED WITH PRN MORPHINE. MEDICATIONS PER SEP. PT REPOSITIONED EVERY 2 HOURS FOR COMFORT. HOURLY ROUNDING OBSERVED. BED IN LOW POSITION. CALL LIGHT WITHIN REACH. WILL CONTINUE PLAN OF CARE.
[2019-10-01 20:00] VITALS: BP 96/65
[2019-10-02 03:19] LABS: ALBUMIN 2.8 g/dL (3.4-5.0); CALCIUM 7.1 mg/dL (8.5-10.1); CREATININE 0.6 mg/dL (0.6-1.3); TOTAL BILIRUBIN 0.7 mg/dL (<0.1-1.0); TOTAL PROTEIN 6.1 g/dL (6.4-8.2)
[2019-10-02 03:26] LABS: POTASSIUM 3.7 mmol/L (3.5-5.1)
[2019-10-02 03:48] LABS: HEMATOCRIT 25.6 % (42.0-52.0); HEMOGLOBIN 8.2 gm/dL (14.0-18.0); MCH 23.4 pg (26.0-34.0); MCV 73.1 fL (80.0-100.0); MPV 6.8 fl. (7.2-11.1); RBC 3.5 mil/uL (4.50-6.00); RDW-CV 27.6 % (10.5-14.5); WBC 6.3 thou/uL (4.0-11.0)
--- NOTE | 2019-10-02 04:54 | NUR ---
PT ARRIVED TO FLOOR FROM TELEMETRY AT 2029. ALERT AND ORIENTED X4, POLITE AND COOPERATIVE WITH CARES. MORPHINE TWICE THIS SHIFT FOR NECK AND SHOULDER PAIN. ON 3.5L 02 PER NC, SATS IN UPPER 90'S. TAKES PILLS CRUSHED IN APPLESAUCE. POTASSIUM AND MAGNESIUM WNL. USED URINAL OVERNIGHT. SL TO LEFT FOREARM FLUSHES EASILY. PT REPOSITIONED Q2 WHEN ALLOWED. USES CALL LIGHT APPROPRIATELY. HOURLY ROUNDING IN PROGRESS, WILL CONTINUE TO MONITOR.
--- NOTE | 2019-10-02 09:20 | CON ---
[address] [address] CONSULTATION Name: ABDULAZIZ ENCISO Room: [address] IN [place]#: [id number] Admission: 09/28/19 Attend Phys: Rose Ashby MD Discharge: Date of : 42 Report #: [id number] THIS REPORT FOR: //name// cc: Jay Petersen MD, Dennis R MD ~ THIS REPORT FOR: //name// CC: JAY Ashby MD DATE OF SERVICE: 09/30/2019 REFERRING PHYSICIAN: Rose Ashby MD REASON FOR CONSULTATION: Recurrent ascites. IMPRESSION: 1. Shortness of breath secondary to recurrent ascites. 2. Cryptogenic cirrhosis complicated by portal hypertension with associated ascites, variceal bleeding, and mild hepatic encephalopathy. 3. Coronary artery disease with previous bypass surgery in the past as well as previous stents placed and ejection fraction of only 35%-40% as per echo in 09/2018. 4. Severe protein-calorie malnutrition. 5. Chronic rheumatoid arthritis. 6. Chronic obstructive pulmonary disease, which is oxygen dependent. 7. Chronic atrial fibrillation, off all anticoagulants at this time. 8. Large aortic aneurysm. 9. Iron deficiency anemia with recent EGD and variceal banding with a need for iron replacement. RECOMMENDATIONS: 1. Agree with the patient being admitted to the hospital due to shortness of breath and need for therapeutic paracentesis. 2. We will adjust the patient's diuretic support starting tomorrow. In reviewing the patient's [facility] records, he is currently taking 100 mg of Aldactone and 40 mg of Lasix once daily and this is not enough. He may not able to be tolerating low or high dose of diuretics at this time, but we can certainly increase him on 200 mg of Aldactone and 80 mg of Lasix. Depending on his response to same, he may need to have intermittent paracentesis done once weekly with albumin infusions versus other options. His other option would be to have a PleurX catheter placed within the peritoneal cavity, so that ascitic fluid come off intermittently, still having the [place] [address] CONSULTATION Name: SULLYLuzABDULAZIZ SEGOVIA Room: [address]#: [id number] Admission: 09/28/19 Attend Phys: Rose Ashby MD Discharge: Date of : 42 Report #: [id number] but the patient will need to be on hospice care. in order for this to happen. This needs to be discussed with the patient as he told Dr. Ashby that he no longer wants to be on hospice care, but I think this is probably his best option given his multitude of medical issues. 3. 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 4. We will begin the patient on ferrous sulfate twice daily to help with his iron deficiency anemia. 5. We clarified the patient's status as to whether or not he wants to continue with hospice care. If so, I would proceed with placement of a PleurX catheter. We will continue to follow the patient while he is in the hospital. HISTORY OF PRESENT ILLNESS: The patient is a 78-year-old white male with decompensated liver disease secondary to probably nonalcoholic fatty liver or previous rheumatoid arthritis issues, who was admitted to the hospital because of problem with increasing shortness of breath. He has undergone at least 3 paracenteses over the last several months and volumes of 5-7.5 liters been removed at that time. He has currently been on Aldactone 100 mg daily and Lasix 40 mg daily, but has had problems with recurrent ascites. He was recently hospitalized for GI bleeding and underwent EGD with variceal banding by my partner, Dr. Mosquera, on the night. He states he had just a feeling of abdominal fullness and inability to eat much of anything because of the same. He is currently a resident at [facility] and was transferred here because of increasing shortness of breath. He is on chronic O2 as it is, which is nothing new for him. MEDICATIONS: His current medication list includes carvedilol 3.125 mg twice daily, furosemide 20 mg 1 daily, hydrocodone with Tylenol 7.5/325 one tablet up to every 6 hours, melatonin daily, morphine concentrated solution of Roxanol per hospice every couple of hours, pantoprazole 40 mg twice daily, spironolactone 100 mg once daily, Xifaxan 550 mg twice daily, aspirin 325 mg once daily, lorazepam p.r.n. PAST MEDICAL AND SURGICAL HISTORY: Remarkable for coronary artery disease with previous bypass surgery, previous stent placement in the past with ejection fraction of only 35%-40% as of 09/2018. He has underlying hypertension, hyperlipidemia, and diabetes. He has end-stage liver disease secondary to cryptogenic cirrhosis with associated ascites, encephalopathy and variceal bleeding. He has had problem with chronic anemia, which is related to iron deficiency anemia from chronic blood loss and portal hypertensive gastropathy. He also has COPD, which is oxygen requiring. He has a history of compression fractures, Donald's neuroma, skin cancer, has had surgery for the same. He has had previous cholecystectomy as well. ALLERGIES: SULFA, AMOXICILLIN, METFORMIN [place] [address] CONSULTATION Name: ABDULAZIZ ENCISO Jimmy Room: [address] IN [facility]#: [id number] Admission: 09/28/19 Attend Phys: Rose Ashby MD Discharge: Date of : 42 Report #: [id number] SOCIAL HISTORY: The patient previously smoked. Does not drink alcohol or any drug use. FAMILY HISTORY: Negative. PHYSICAL EXAMINATION: GENERAL: Revealed an ill-appearing 78-year-old white male who is cachectic. CARDIOPULMONARY: Revealed diminished breath sounds throughout. ABDOMEN: Soft. It was distended. He does have ascites. He has some peripheral edema as well. He has no asterixis. LABORATORY DATA: From today revealed white count 6.1, hemoglobin 9.6, and platelet count 223,000, MCV is 73.2 and RDW is 27.5. His differential is normal. His sodium is 136, potassium 3.0, chloride 99, bicarbonate 35. His BUN is 12, creatinine 0.5. Total bilirubin 0.4, alkaline phosphatase 197, AST is 27, ALT is 18. His albumin is only 2.0. His iron saturation on 09/21 was only 5 and it was only 9 last year and while his ferritin was 1932 back in 09/2018, his soluble transferrin receptor assay was 46.5 compatible with iron deficiency anemia. His folic acid and B12 levels are normal. His BNP is 3407. DIAGNOSTIC DATA: CT scans of the abdomen and pelvis revealed a shrunken liver compatible with end-stage liver disease without any focal lesions being notable. He has postsurgical change compatible with previous cholecystectomy without ductal dilation. His spleen is enlarged at 16 cm. He has diverticular disease within the sigmoid colon. There was a large amount of ascites throughout the abdomen. CT scan of the chest revealed emphysematous changes and aortic aneurysm involving the aortic root measuring 5.4 cm in diameter, which is unchanged since 08/2016. DISCUSSION: At the present time, the patient is chronically ill. I think hospice is probably his best option, but that will be a decision he has to make. He is not a surgical candidate, he is not a liver transplant candidate, nor is he a candidate for TIPS procedure. We will see what we can do for him with regards to his ascites while he is in the hospital and make further recommendations thereafter. I have discussed the plans with the patient as well and he is agreeable to the same. <ELECTRONICALLY SIGNED> By: Jelani Alejo DO 10/02/19 0920 1648 [id number] Alejo DO /nt
[2019-10-02 10:09] VITALS: BP 98/66
--- NOTE | 2019-10-02 13:30 | NUR ---
SPOKE WITH PT.THIS AM ABOUT POSSIBLY PLACING A PLEUR X DRAIN INTO ASCITES FLUID TO DRAIN FLUID PRN AND GOING ON HOSPICE. PT.SAID HE WOULD LIKE TO DISCUSS WITH HIS . JAH/DONNA DUARTEG.HOME NOTIFIED PT.MIGHT RETURN TUE OR . CM ALSO DISCUSSED WITH .
[2019-10-02 16:00] VITALS: BP 110/55
--- NOTE | 2019-10-02 16:32 | NUR ---
PT A&Ox4. VITALS STABLE. IV PATENT. PAIN CONTROLLED WITH MORPHINE. UP WITH 1 USING WALKER. FALL PRECAUTIONS IN PLACE. CALL LIGHT WITHIN REACH. WILL CONTINUE TO MONITOR.
[2019-10-02 18:07] LABS: BODY FLUID PROTEIN 1.7 g/dL (())
[2019-10-02 21:20] VITALS: BP 93/58
[2019-10-03 04:09] LABS: HEMATOCRIT 26.7 % (42.0-52.0); HEMOGLOBIN 8.8 gm/dL (14.0-18.0); MCH 24.2 pg (26.0-34.0); MCV 73.2 fL (80.0-100.0); MPV 6.7 fl. (7.2-11.1); RBC 3.65 mil/uL (4.50-6.00); RDW-CV 27.4 % (10.5-14.5); WBC 6.9 thou/uL (4.0-11.0)
[2019-10-03 04:57] LABS: CREATININE 0.6 mg/dL (0.6-1.3); MAGNESIUM 1.7 mg/dL (1.8-2.4); POTASSIUM 4.2 mmol/L (3.5-5.1); TOTAL BILIRUBIN 0.8 mg/dL (<0.1-1.0); TOTAL PROTEIN 6.3 g/dL (6.4-8.2)
--- NOTE | 2019-10-03 07:53 | NUR ---
PATIENT HAS SLEPT OFF AND ON DURING THE NIGHT. VSS ON 3.5L OF 02 VIA NASAL CANNULA, ALTHOUGH BP SLIGHTLY LOW. PATIENT REMAINS ON PUREED DIET. PATIENT TAKES PILLS PO CRUSHED WITH APPLESAUCE. PATIENT VERY PLEASANT. UP WITH ASSIST X 1. IV IN LEFT FOREARM-SL. PATIENT INSTRUCTED TO USE CALL LIGHT WHEN NEEDING ASSISTANCE. HOURLY ROUNDS MADE. WILL CONTINUE WITH PLAN OF CARE AND NURSING TO MONITOR.
[2019-10-03 08:10] VITALS: BP 100/61
[2019-10-03 16:00] VITALS: BP 133/86
--- NOTE | 2019-10-03 17:59 | NUR ---
PT A&Ox4. VITALS STABLE. IV PATENT. UP WITH 1 USING GB AND WALKER. ON 3.5L OX. WILL DC TO LTC. SUPPLIES TO DRAIN ABD TUBE FOR LTC IN ROOM. IF ABD NEEDS DRAINED BEFORE DISCHARGE CALL IR, DO NOT USE SUPPLIES. FALL PRECAUTIONS IN PLACE. CALL LIGHT WITHIN REACH. WILL CONTINUE TO MONITOR.
[2019-10-03 20:50] VITALS: BP 93/64
[2019-10-04 03:05] VITALS: BP 90/52
--- NOTE | 2019-10-04 04:43 | NUR ---
PT ON 3.5L O2 BY NC. A&O X 4. MEDS CRUSHED AND GIVEN WITH APPLE SAUCE. PO MORHINE GIVEN FOR CHRONIC NECK AND SHOULDER PAIN. DRESSING ON LT ABD CLEAN AND INTACT. PT USES URINAL TO VOID. REPORTED N/V COMES AND GOES THIS MORNING, HOURLY ROUNDINGS, TURNS COMPLETED. WILL CONTINUE TO MONITOR.
[2019-10-04 08:00] VITALS: BP 104/63
[2019-10-04 09:04] LABS: APTT 33.7 Seconds (25.0-31.3); INR 1.4; PROTIME 13.7 Seconds (9.20-11.50)
[2019-10-04] MEDS ORDERED: LEVAQUIN 750 M750 MG PO ×2 (14:17→14:39)
--- NOTE | 2019-10-04 16:59 | NUR ---
CM INFORMED BY THE PHYSICIAN THAT THE PT IS READY TO D/C AND WOULD LIKE TO RETURN TO [facility]. CM ATTEMPTED TO CONTACT THE PT'S SPOUSE TO INFORM OF THIS INFO. NO ANSWER. PT GAVE PERMISSION AND CONTACT INFO FOR HIS SON. PT'S SON INFORMS THAT HE 'WILL LET MOM KNOW THAT DAD IS GOING BACK TO THE FACILITY TODAY'. CM SPOKE TO [facility] ADMINISTRATIOR TO INFORM OF THE PT'S RETURN. [facility] ADMIN PROVIDED NURSES CONTACT INFO, AND FAX NUMBER FOR REPORT AND D/C ORDERS. CM FAXED D/C ORDERS TO FACILITY. PT WILL RETURN TO [facility] BY [facility] TRANSPORT. TRANSPORT FORM FAXED TO [facility]. RN INFORMED OF NEED TO CONTACT [facility] WHEN READY TO D/C PT. RN ALSO INFORMED OF WHERE TO CALL REPORT. CM WILL REMAIN AVAILABLE TO ASSIST AND FOLLOW NEEDED. [facility] PH: [phone] [facility] PHONE: [phone]
[2019-10-04] MEDS ORDERED: SPIRONOLACTONE100 M1 PO (18:33)
[2019-10-04 18:35] VITALS: BP 104/63
--- NOTE | 2019-10-04 20:12 | NUR ---
PT BEING DISCHARGED TO THE SKILLED FACILITY UNDER HOSPICE CARE. REPORT CALLED TO NURSE MIKAELA WHITMORE. ALL PAPERWORK SENT WITH THE PT. BEING TRANSPORTED VIA [facility] ON AMBULANCE ACCOMPANIED BY AMBULANCE PERSONNEL. PT IS STABLE ON O2 @ 2LITERS. PT HAS ALL BELONGINGS.
[2019-10-05 22:01] LABS: SOURCE ABDOMINAL FLUID
== END 2019-10-04 20:00 | DRG 177 ==
LOC: M.ERS 10:32 → M.2W 12:29 → M.TBA-ER 12:29 → M.2W 19:58 → M.ORTHSURG 10-01 21:00
PROVIDERS: Family Medicine; Internal Medicine Gastroenterology; ADMIT Internal Medicine
PROC: 0W9G3ZZ Drainage of Peritoneal Cavity, Percutaneous Approach (ICD-10-PCS; principal; 2019-10-01)
PROC: B5181ZA Fluoroscopy of Superior Vena Cava using Low Osmolar Contrast, Guidance (ICD-10-PCS; 2019-10-03)
PROC: B548ZZA Ultrasonography of Superior Vena Cava, Guidance (ICD-10-PCS; 2019-10-03)
PROC: 02H633Z Insertion of Infusion Device into Right Atrium, Percutaneous Approach (ICD-10-PCS; 2019-10-03)
PROC: 0JH83XZ Insertion of Tunneled Vascular Access Device into Abdomen Subcutaneous Tissue and Fascia, Percutaneous Approach (ICD-10-PCS; 2019-10-03)
DX: J15.6 Pneumonia due to other Gram-negative bacteria (principal); J96.21 Acute and chronic respiratory failure with hypoxia; E43 Unspecified severe protein-calorie malnutrition; I85.00 Esophageal varices without bleeding; R18.8 Other ascites; K76.6 Portal hypertension; I48.20 Chronic atrial fibrillation, unspecified; Z99.81 Dependence on supplemental oxygen; K74.60 Unspecified cirrhosis of liver; J44.9 Chronic obstructive pulmonary disease, unspecified; F41.9 Anxiety disorder, unspecified; Z79.01 Long term (current) use of anticoagulants; E78.5 Hyperlipidemia, unspecified; I71.9 Aortic aneurysm of unspecified site, without rupture; D50.9 Iron deficiency anemia, unspecified; K74.69 Other cirrhosis of liver; Z66 Do not resuscitate; I10 Essential (primary) hypertension; I25.10 Atherosclerotic heart disease of native coronary artery without angina pectoris; E11.9 Type 2 diabetes mellitus without complications; K21.9 Gastro-esophageal reflux disease without esophagitis; M06.9 Rheumatoid arthritis, unspecified; K72.90 Hepatic failure, unspecified without coma; K76.0 Fatty (change of) liver, not elsewhere classified; Z79.2 Long term (current) use of antibiotics; Z79.82 Long term (current) use of aspirin; Z79.891 Long term (current) use of opiate analgesic; I25.2 Old myocardial infarction; Z95.1 Presence of aortocoronary bypass graft; Z79.899 Other long term (current) drug therapy; Z88.1 Allergy status to other antibiotic agents; Z88.2 Allergy status to sulfonamides; Z95.5 Presence of coronary angioplasty implant and graft; Z68.20 Body mass index [BMI] 20.0-20.9, adult

== ENCOUNTER 2019-11-20 20:16 | Inpatient (IN) | payer MEDICARE, BC ==
[~2019-11-20] VITALS: Ht 167.6 cm; Wt 50.8 kg
[~2019-11-20 20:16] MED LIST changes: +LEVAQUIN 750 M750 MG PO; +LORAZEPAM2 MG/1 M2 PO; +MORPHINE 00.5 MG/1 M PO
[2019-11-20 20:22] VITALS: BP 108/56
[2019-11-20 21:14] LABS: HEMATOCRIT 34.5 % (42.0-52.0); HEMOGLOBIN 11.2 gm/dL (14.0-18.0); MCH 23.9 pg (26.0-34.0); MCHC 32.6 g/dL (28.0-37.0); MCV 73.4 fL (80.0-100.0); MPV 8.2 fl. (7.2-11.1); NUCLEATED RBCS 0 /100WBC; PLATELET COUNT* 295 thou/uL (150-400); RBC 4.71 mil/uL (4.50-6.00); RDW-CV 24.1 % (10.5-14.5); WBC 9.1 thou/uL (4.0-11.0)
[2019-11-20 21:21] LABS: APTT 28.5 Seconds (25.0-31.3); CALCIUM 8.2 mg/dL (8.5-10.1); INR 1.3; POTASSIUM 5.4 mmol/L (3.5-5.1)
[2019-11-20 21:32] LABS: TOTAL BILIRUBIN 0.7 mg/dL (<0.1-1.0); TOTAL PROTEIN 7.2 g/dL (6.4-8.2)
[2019-11-20 21:41] LABS: ABSOLUTE EOSINOPHILS 0.1 thou/uL (0.0-0.7); ABSOLUTE LYMPHOCYTES 0.7 thou/uL (0.8-5.3); ABSOLUTE MONOCYTES 0.2 thou/uL (0.0-1.2); ABSOLUTE NEUTROPHILS 8.1 thou/uL (1.6-8.1); PLATELET ESTIMATE ADEQUATE; POIKILOCYTOSIS 1+
[2019-11-20 21:42] LABS: ANISOCYTOSIS 2+; MICROCYTES 1+
[2019-11-20 21:43] LABS: HYPOCHROMASIA 1+; TARGET CELLS Occasional
[2019-11-20 23:15] VITALS: BP 100/64
[2019-11-21] VITALS: BP 93/64
[2019-11-21 07:50] VITALS: BP 89/66
--- NOTE | 2019-11-21 08:31 | EKG ---
[place] [address] ELECTROCARDIOGRAM REPORT Name: ABDULAZIZ ENCISO Room: [address] IN .R.#: [id number] Admission: 11/20/19 Attend Phys: Gutierrez Amato, Discharge: Date of : 44 Date of Service: 11/20/192021 Report #: [id number] THIS REPORT FOR: //name// [facility] ED Test Date: 2019-11-20 Test Time: 20:22:16 Pat Name: ABDULAZIZ ENCISO Department: Room: [facility] Gender: M Miter Cutter: CESILIA : 1940 Requested By: Sharon Donnelly Order Number: [id number] MD: Eyad Baker Measurements Intervals [place] Rate: 85 P: NV: QRS: -21 QRSD: 89 T: 114 QT: 388 QTc: 462 Interpretive Statements Atrial flutter Borderline left axis deviation Anterior infarct, old Abnormal T, consider ischemia, lateral leads Compared to ECG 09/28/2019 10:37:21 Myocardial infarct finding now present T-wave abnormality now present Possible ischemia now present Prolonged QT interval no longer present Electronically Signed On 11-21-2019 8:30:05 CDT by Eyad Baker [email or web address] <ELECTRONICALLY SIGNED> By: Eyad Baker MD, [facility] 11/21/19829 21 21 Eyad Baker MD, [facility] /EPI
[2019-11-21 20:22] VITALS: BP 95/62
[2019-11-22 04:44] LABS: ABSOLUTE EOSINOPHILS 0.1 thou/uL (0.0-0.7); ABSOLUTE LYMPHOCYTES 0.4 thou/uL (0.8-5.3); ABSOLUTE MONOCYTES 0.8 thou/uL (0.0-1.2); ABSOLUTE NEUTROPHILS 5.8 thou/uL (1.6-8.1); BASOPHILS 0.5 %; HEMATOCRIT 30.7 % (42.0-52.0); HEMOGLOBIN 10.2 gm/dL (14.0-18.0); LYMPHOCYTES 5.2 %; MCH 24.2 pg (26.0-34.0); MCHC 33.3 g/dL (28.0-37.0); MCV 72.6 fL (80.0-100.0); MONOCYTES 11.6 %; MPV 8.3 fl. (7.2-11.1); NUCLEATED RBCS 0 /100WBC; POLYS 80.7 %; RBC 4.23 mil/uL (4.50-6.00); RDW-CV 23.7 % (10.5-14.5); WBC 7.1 thou/uL (4.0-11.0)
[2019-11-22 05:03] LABS: CALCIUM 7.6 mg/dL (8.5-10.1); CREATININE 0.8 mg/dL (0.6-1.3); POTASSIUM 4.2 mmol/L (3.5-5.1)
[2019-11-22 05:26] LABS: PLATELET COUNT* 218 thou/uL (150-400)
--- NOTE | 2019-11-22 08:19 | CON ---
[address] [address] CONSULTATION Name: ABDULAZIZ ENCISO Room: [address] IN [place].#: [id number] Admission: 11/20/19 Attend Phys: Gutierrez Amato MD Discharge: Date of : 44 Report #: [id number] THIS REPORT FOR: //name// cc: Jay Petersen MD, Dennis R MD ~ THIS REPORT FOR: //name// CC: Gutierrez Petersen HISTORY OF PRESENT ILLNESS: This is a pleasant 79-year-old gentleman with end-stage liver disease, who is currently on hospice, who was brought in with dyspnea. The patient appears to be more comfortable at this time. He has a PleurX catheter for his ascites. The patient does report significant pain in both his shoulders, but apart from that does not have any significant complaints. PAST MEDICAL HISTORY: The patient has a history of hypertension, hyperlipidemia, coronary artery disease, diabetes, and end-stage liver disease. PAST SURGICAL HISTORY: The patient has a history of oral surgery, full dentures, bilateral inguinal hernia repair, and vertebroplasty. SOCIAL HISTORY: The patient quit smoking in the past. No significant alcohol or recreational drug use. FAMILY HISTORY: Not relevant. REVIEW OF SYSTEMS: A comprehensive 10-point review of systems is negative except for what was mentioned in the HPI. PHYSICAL EXAMINATION: VITAL SIGNS: Temperature 37.0, pulse rate 94, respirations 16, blood pressure 89/66, and pulse ox 95%. GENERAL: The patient is alert, awake, oriented x 3. HEENT: Pupils are equal, round, reactive to light and accommodation. Mucous membranes are moist. There is no congestion. LUNGS: Clear to auscultation bilaterally. CARDIOVASCULAR: Rate and rhythm regular, S1, S2 present. ABDOMEN: Soft and distended. Fluid thrill present. No tenderness or guarding. EXTREMITIES: Trace pitting edema. The patient appears severely malnourished and cachectic. LABORATORY DATA: Hemoglobin 11.2, hematocrit 35.4, platelet count 295, and WBC count 9.1. Sodium 129, potassium 5.4, chloride 95, bicarbonate 33, BUN 28, and creatinine 1. INR 1.3. Low lung volumes with bibasilar scarring or atelectasis noted [place] [address] CONSULTATION Name: ABDULAZIZ ENCISO Room: [address]#: [id number] Admission: 11/20/19 Attend Phys: Gutierrez Amato MD Discharge: Date of : 44 Report #: [id number] ASSESSMENT AND PLAN: Pleasant 79-year-old gentleman with end-stage liver disease, who currently is in hospice. No GI intervention is necessary at this time. The patient can continue to drain his ascites with his PleurX catheter intermittently. Please call us with any questions. <ELECTRONICALLY SIGNED> By: Jarrod Love MD 11/22/19 0819 [id number] 1300Jarrod Love MD /nt
[2019-11-22 08:32] VITALS: BP 122/76
[2019-11-22 15:14] VITALS: BP 122/76
== END 2019-11-22 16:20 | DRG 441 ==
LOC: M.ERS 20:16 → M.ORTHSURG 21:58 → M.TBA-ER 21:58 → M.ERS 23:15 → M.ORTHSURG 23:59
PROVIDERS: Personal Emergency Response Attendant; ADMIT Internal Medicine
DX: K72.90 Hepatic failure, unspecified without coma (principal); N18.6 End stage renal disease; E43 Unspecified severe protein-calorie malnutrition; R18.8 Other ascites; I85.00 Esophageal varices without bleeding; Z68.1 Body mass index [BMI] 19.9 or less, adult; Z66 Do not resuscitate; J44.9 Chronic obstructive pulmonary disease, unspecified; F41.9 Anxiety disorder, unspecified; I48.91 Unspecified atrial fibrillation; E78.5 Hyperlipidemia, unspecified; I10 Essential (primary) hypertension; I25.10 Atherosclerotic heart disease of native coronary artery without angina pectoris; E11.9 Type 2 diabetes mellitus without complications; K21.9 Gastro-esophageal reflux disease without esophagitis; M19.90 Unspecified osteoarthritis, unspecified site; M06.9 Rheumatoid arthritis, unspecified; K76.0 Fatty (change of) liver, not elsewhere classified; I25.2 Old myocardial infarction; Z99.81 Dependence on supplemental oxygen; Z79.01 Long term (current) use of anticoagulants; Z79.82 Long term (current) use of aspirin; Z95.1 Presence of aortocoronary bypass graft; Z79.891 Long term (current) use of opiate analgesic; Z79.899 Other long term (current) drug therapy